=== PATIENT | female | born 1955 | race Caucasian/White ===

== ENCOUNTER 2019-08-12 18:19 | Inpatient (IN) | payer OTHER ==
[~2019-08-12] VITALS: Ht 165.1 cm; Wt 100.2 kg
[~2019-08-12 18:19] MED LIST: ACETAMINOPHEN PO; ADVIL MIGRAINE200 MG PO; AMITRIPTYLINE H75 M1 PO; BENTYL20 MG PO; COREG CR20 MG PO; FLONASE16 GM NS; MECLIZINE 25 MG25 M1 PO; PRILOSEC40 MG PO; VICODIN 5-5001 EACH PO; ZOFRAN4 MG PO
[2019-08-12 18:21] VITALS: BP 149/94
[2019-08-12 18:44] LABS: ABSOLUTE NEUTROPHILS 2.7 thou/uL (1.4-8.2); BASOPHILS 0.8 % (0.0-2.0); EOSINOPHILS 1.7 % (0.0-3.0); HEMATOCRIT 33.3 % (37.0-47.0); HEMOGLOBIN 10.9 gm/dL (12.0-15.0); MCH 26.3 pg (26.0-34.0); MCHC 32.8 g/dL (28.0-37.0); MCV 80.2 fL (80.0-100.0); MONOCYTES 9.5 % (1.0-8.0); PLATELET COUNT 267 thou/uL (150-400); RBC 4.15 mil/uL (4.20-5.00); RDW 14.7 % (10.5-14.5)
[2019-08-12 19:06] LABS: ALBUMIN 2.9 g/dL (3.4-5.0); ANION GAP 6 mmol/L (7-16); BUN 3 mg/dL (7-18); CALCIUM 9.4 mg/dL (8.5-10.1); CHLORIDE 94 mmol/L (98-107); CO2 34 mmol/L (21-32); CREATININE 0.8 mg/dL (0.6-1.0); GLUCOSE 210 mg/dL (74-106); LIPASE 15 U/L (73-393); SGOT 15 U/L (15-37); SGPT 13 U/L (30-65); SODIUM 134 mmol/L (136-145); TOTAL BILIRUBIN 0.5 mg/dL (<0.1-1.0); TOTAL PROTEIN 7.4 g/dL (6.4-8.2); TROPONIN-I <0.06 ng/mL (<0.06)
[2019-08-12 19:19] LABS: POTASSIUM 2.9 mmol/L (3.5-5.1)
[2019-08-12 21:20] VITALS: BP 178/96
--- NOTE | 2019-08-12 23:00 | NUR ---
New pt arrived unit @6270. pt is admitted with a dx of colitis. pt stated that she's had intractable n/v for the past 5days, and has not been able to keep anything down since 08/11. pt is on a clear liquid diet and tolerating it well pt is a&ox4. ambulates with standby assist. Pt had a high blood pressure when she arrived unit n was medicated per emar with improvements. pt k and mg were low and are being replaced. pt oriented to room. pt c/o abd, generalized and head pain and was medicated. pt call approp when she needs assistance. no s/s of distress. will cont to monitor
[2019-08-13 01:03] VITALS: BP 156/83
[2019-08-13] MEDS ORDERED: GLUCOPHAGE1000 MG PO (01:09)
[2019-08-13] MEDS ORDERED: LIPITOR10 MG (01:11)
[2019-08-13] MEDS ORDERED: LISINOPRIL-HCT1 EAC1 (01:13)
[2019-08-13] MEDS ORDERED: BUSPIRONE HCL10 MG (01:14)
[2019-08-13] MEDS ORDERED: LEXAPRO 10 MG T10 M2 PO (01:15)
[2019-08-13] MEDS ORDERED: NEURONTIN 400M400 M2 (01:16)
[2019-08-13] MEDS ORDERED: TRAMADOL 50 MG50 MG (01:17)
[2019-08-13 07:01] LABS: HEMATOCRIT 31.2 % (37.0-47.0); HEMOGLOBIN 10.1 gm/dL (12.0-15.0); MCH 26.2 pg (26.0-34.0); MCHC 32.4 g/dL (28.0-37.0); MCV 80.7 fL (80.0-100.0); RBC 3.86 mil/uL (4.20-5.00); RDW 14.6 % (10.5-14.5); WBC 3.9 thou/uL (4.0-11.0)
[2019-08-13 07:21] LABS: CALCIUM 8.9 mg/dL (8.5-10.1); CREATININE 0.6 mg/dL (0.6-1.0); POTASSIUM 3.6 mmol/L (3.5-5.1)
[2019-08-13 07:40] VITALS: BP 150/80
--- NOTE | 2019-08-13 14:10 | NUR ---
Chart reviewed and case discussed with the care team. Psychiatry Teacher visited with the pt at bedside. 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 She is a&ox4 and indicates that she has applied for SS disability due to neurological issues (TIA's). She does not have health insurance and was [facility] to complete a [place] medicaid application. She utlizes [facility] and they help her get her medications. Saftey net pkt provided along with goodrx coupon card. The pt is hoping she will be able to move to [place] soon to live with her only child, jermaine Zacarias. Transition of care discussed. Pt denies any dc planning needs at this time. Will remain available should needs arise.
--- NOTE | 2019-08-13 15:06 | NUR ---
Assumed Pt care @ 0700. Assessment completed, VSS, A&O x4. Pt has small bruising on leg due to bumping into furniture and PT made small drawing around bruise to check if it would go outside of drawn border, it did not. Pt went to use toilet and stated she thought she has CDIFF but RN did not note any foul odor or unusual color to urine but sent sample to lab for determination. Pt complains of mild sore throat and headache and pain around adbomen. Provided pain medication and also comfort items (ice bag and cold towel for headache). Pt's daughter called to check Pt status and was satisfied with overall report. Nuc Med called to provide instructions regarding gastric empty study that will have NPO after midnight, no water except small sips for morning meds and NO ANTACIDS, NO NARCOTICS, & NO ANTIANXIETY meds.
[2019-08-13 15:55] LABS: URINE BILIRUBIN NEGATIVE (Negative); URINE BLOOD NEGATIVE (Negative); URINE CLARITY CLEAR; URINE COLOR YELLOW; URINE GLUCOSE-RANDOM* NEGATIVE (Negative); URINE KETONES NEGATIVE (Negative); URINE LEUKOCYTES-REFLEX TRACE (Negative); URINE NITRITE-REFLEX NEGATIVE (Negative); URINE PROTEIN (DIPSTICK) NEGATIVE (Negative); URINE SPECIFIC GRAVITY <= 1.005 (1.005-1.035); URINE UROBILINOGEN 0.2 E.U./dl (0.2-1.0)
[2019-08-13 20:01] VITALS: BP 151/86
--- NOTE | 2019-08-14 03:33 | NUR ---
PT AOX4. PT REPORTS PAIN 9/10 IN HEAD AND ABDOMEN. GIVEN PRN MORPHINE IV. APPEARS EFFECTIVE PT SLEEPING WITHOUT INTERRUPTION OR OBSERVATION OF PAIN. NOTED TO HAVE DIMINISHED LUNG SOUNDS. PT HAS NO REPORT OF SHORTNESS OF BREATH. PT NPO AT 0000. PT TO HAVE GASTRIC EMPTYING PROCEDURE IN THE MORNING. ABSENT BOWEL SOUNDS. CURRENTLY NO EPISODES OF NAUSEA AND VOMITTING. PT ASSISTED WITH DENTAL HYGIENE SHE REPORTS DRY MOUTH. PT AMBULATORY WITH CANE AND STAND BY ASSIST. ENCOURAGED TO NOTIFY STAFF FOR ALL CONCERNS. CALL LIGHT WITHIN REACH, BED AT LOWEST POSITION, BED ALARMS ON.
[2019-08-14 06:03] LABS: HEMATOCRIT 30.4 % (37.0-47.0); HEMOGLOBIN 9.8 gm/dL (12.0-15.0); MCH 26.2 pg (26.0-34.0); MCHC 32.3 g/dL (28.0-37.0); MCV 80.9 fL (80.0-100.0); RBC 3.76 mil/uL (4.20-5.00); RDW 14.8 % (10.5-14.5); WBC 2.8 thou/uL (4.0-11.0)
[2019-08-14 06:16] LABS: CALCIUM 8.3 mg/dL (8.5-10.1); CREATININE 0.6 mg/dL (0.6-1.0); POTASSIUM 3.3 mmol/L (3.5-5.1)
[2019-08-14 08:13] VITALS: BP 168/76
[2019-08-14 17:05] VITALS: BP 153/88
--- NOTE | 2019-08-14 18:59 | EKG ---
[place] [address] [facility] [place] [address] ELECTROCARDIOGRAM REPORT Name: ALVIN DE LA CRUZ Room #: 464-P ADM IN M.R.#: [id number] Admission: 08/12/19 Attend Phys: Luciano Helm MD Discharge: Date of : 59 Report #: [id number] THIS REPORT FOR: //name// [facility] ED Test Date: 2019-08-12 Test Time: 19:04:14 Pat Name: ALVIN DE LA CRUZ Department: Room: 464 Gender: F Cash Processor: SARAH : 1955 Requested By: Jennifer Prado Order Number: [id number] MD: Juan Wharton Measurements Intervals [place] Rate: 91 P: 148 SC: 175 QRS: 209 QRSD: 94 T: 156 QT: 379 QTc: 467 Interpretive Statements Right and left arm electrode reversal, interpretation assumes no reversal Sinus or ectopic atrial rhythm Nonspecific T wave abnormality Compared to ECG 06/21/2010 12:28:35 Limb lead reversal is now present recommend repeat tracing Electronically Signed On 08-14-2019 18:59:18 ALLOY WEIGHER by Juan Wharton [email or web address] <ELECTRONICALLY SIGNED> By: Juan Wharton MD, FAC 08/14/19 1859 03 03 Juan Wharton MD, [facility] /EPI
--- NOTE | 2019-08-14 19:00 | EKG ---
[address] [place] [address] ELECTROCARDIOGRAM REPORT Name: DE LA CRUZALVIN Room #: 464-P ADM IN M.R.#: [id number] Admission: 08/12/19 Attend Phys: Luciano Helm MD Discharge: Date of : 59 Report #: [id number] THIS REPORT FOR: //name// [facility] ED Test Date: 2019-08-12 Test Time: 19:09:38 Pat Name: ALVIN DE LA CRUZ Department: Room: 464 Gender: F Cracking And Fanning Machine Operator: SARAH : 1955 Requested By: Luciano Helm Order Number: [id number] MD: Juan Wharton Measurements Intervals [place] Rate: 92 P: 29 IN: 180 QRS: -30 QRSD: 92 T: 8 QT: 357 QTc: 442 Interpretive Statements Sinus rhythm Left axis deviation Poor R wave progression Compared to ECG 06/21/2010 12:28:35 Limb lead reversal is no longer present Electronically Signed On 08-14-2019 18:59:41 HIGH VOLTAGE ELECTRICIAN by Juan Wharton [email or web address] <ELECTRONICALLY SIGNED> By: Juan Wharton MD, [facility] 08/14/19 3146 08 08 Juan Wharton MD, [facility] /EPI
--- NOTE | 2019-08-14 19:39 | NUR ---
Received awake on bed. On nothing per orem- pt informed and aware. Vital signs stable. On room air, pt mentioned she was recently diagnosed with sleep apnea and has not yet gone for fitting for Cpap/bipap- Dr Helm informed this morning during his rounds. A+Ox4. Pt scheduled for Gastric emptying studies thus NPO from midnight, no narcotics given from midnight. On blood sugar monitoring, taken and recorded accordingly; with sliding scale insulin prescribed. With NS at 125cc/hr, infusing well at L AC, with SL at L hand as well. Pt on standby assist, stable- able to go to the bathroom. Pt went down for gastric emptying studies via cart, stayed there for almost 4 hours. As per Emergency Dept Tech Marcia- results are negative, she went to pt's room to give her an update. Daughter Deann also given update. Pt complained that she has not have a bowel movement for more that a week already- FAUSTINA Reicnos informed, ordered Bisacodyl supp- given as prescribed, if still unable to have a bowel movement- may give colace bomb enema. Pt maintained on clear liquid diet as per RADIATION OFFICER. Colace bomb enema given- able to have a bowel movement, mostly were the instilled fluids earlier, pt still has remaining of the enema, informed night shift supervisor nurse to instill remaining since pt requested rest from administration of enema. Pt's IV both infiltrated- re-sited by IV nurse at FA. Dr Helm updated re: bowel movements and orders made. Complained of pain, due PRN pain meds given as prescribed. Assisted in ADLs. Pre dinner sliding scale omitted- pt not having too much to eat, high risk for hypoglycemia. To continue monitoring patient.
[2019-08-14 19:46] VITALS: BP 145/51
[2019-08-15 07:24] VITALS: BP 156/73
--- NOTE | 2019-08-15 07:29 | NUR ---
ASSUMED CARE OF PT AT 1900HRS. PT IS AOX4 AND LETS NEEDS BE KNOWN. FALL PRECAUTION IN PLACE. PT COMPLAINED OF NAUSEA AND PAIN AND WAS TREATED WITH PRN MEDS. ENEMA WAS EFFECTIVE PT HAD A LARGE BM THIS SHIFT. PT WAS ABLE TO SLEEP PART OF THE SHIFT. VSS AND NO S/S OF ACUTE DISTRESS. PT IS PROGRESSING TOWARDS DC GOALS.
[2019-08-15] MEDS ORDERED: FLAGYL500 M1 PO (15:35)
[2019-08-15] MEDS ORDERED: CIPRO500 M1 PO (15:35)
[2019-08-15 17:36] VITALS: BP 156/73
--- NOTE | 2019-08-15 18:34 | NUR ---
DC ORDERS RECEIVED. DC INSTRUCTIONS, F/U APPOINTMENT AND SCRIPTS REVIEWED WITH PT. IV REMOVED FROM R FA. PT WAITING FOR HER RIDE AT THIS TIME.
== END 2019-08-15 19:22 | disposition home or self-care (01) | DRG 395 ==
LOC: ER 18:19 → EROBS 20:32 → 4W 20:32 → ENTRNSPT 08-15 18:53 → 4W 08-15 19:22
PROVIDERS: Nurse Practitioner Family; Physician Assistant; ADMIT Hospitalist
DX: K55.9 Vascular disorder of intestine, unspecified (principal); I10 Essential (primary) hypertension; E78.5 Hyperlipidemia, unspecified; E11.42 Type 2 diabetes mellitus with diabetic polyneuropathy; Z96.653 Presence of artificial knee joint, bilateral; E78.00 Pure hypercholesterolemia, unspecified; F41.9 Anxiety disorder, unspecified; F32.9 Major depressive disorder, single episode, unspecified; E87.6 Hypokalemia; K58.1 Irritable bowel syndrome with constipation; G47.33 Obstructive sleep apnea (adult) (pediatric); K57.30 Diverticulosis of large intestine without perforation or abscess without bleeding; Z90.49 Acquired absence of other specified parts of digestive tract; Z88.8 Allergy status to other drugs, medicaments and biological substances; Z79.899 Other long term (current) drug therapy; Z90.710 Acquired absence of both cervix and uterus
CPT/HCPCS: 10040; 10045

== ENCOUNTER 2020-04-24 12:40 | Emergency (ER) | payer OTHER ==
[~2020-04-24] VITALS: Ht 165.1 cm; Wt 99.8 kg
[~2020-04-24 12:40] MED LIST changes: +ASA81BEC PO; +BUSPIRONE HCL10 MG; +CIPRO500 M1 PO; +FLAGYL500 M1 PO; +FLEXERIL PO; +GLUCOPHAGE1000 MG PO; +KEFLEX500 M1 PO; +LEXAPRO 10 MG T10 M2 PO; +LIPITOR10 MG; +LISINOPRIL-HCT1 EAC1; +NEURONTIN 400M400 M2; +ONDANSETRON ODT4 MG PO; +PRILOSEC OTC20 MG PO; +TRAMADOL 50 MG50 MG
[2020-04-24 13:25] LABS: URINE BILIRUBIN NEGATIVE (Negative); URINE BLOOD NEGATIVE (Negative); URINE CLARITY CLEAR; URINE COLOR YELLOW; URINE GLUCOSE-RANDOM* NEGATIVE (Negative); URINE KETONES NEGATIVE (Negative); URINE LEUKOCYTES-REFLEX NEGATIVE (Negative); URINE NITRITE-REFLEX NEGATIVE (Negative); URINE PROTEIN (DIPSTICK) NEGATIVE (Negative); URINE SPECIFIC GRAVITY 1.015 (1.005-1.035); URINE UROBILINOGEN 0.2 E.U./dl (0.2-1.0)
[2020-04-24 13:54] LABS: ABSOLUTE NEUTROPHILS 2.8 thou/uL (1.4-8.2); BASOPHILS 0.5 % (0.0-2.0); EOSINOPHILS 1.8 % (0.0-3.0); HEMATOCRIT 39.1 % (37.0-47.0); HEMOGLOBIN 12.7 gm/dL (12.0-15.0); LYMPHOCYTES 28.4 % (24.0-44.0); MCH 26.1 pg (26.0-34.0); MCHC 32.5 g/dL (28.0-37.0); MCV 80.1 fL (80.0-100.0); MONOCYTES 7.6 % (1.0-8.0); PLATELET COUNT 211 thou/uL (150-400); POLYS 61.7 % (36.0-66.0); RBC 4.88 mil/uL (4.20-5.00); RDW 16.6 % (10.5-14.5); WBC 4.6 thou/uL (4.0-11.0)
[2020-04-24 14:02] LABS: ANION GAP 5 mmol/L (7-16); BUN 4 mg/dL (7-18); CALCIUM 9.5 mg/dL (8.5-10.1); CHLORIDE 97 mmol/L (98-107); CO2 32 mmol/L (21-32); CREATININE 0.9 mg/dL (0.6-1.0); GLUCOSE 125 mg/dL (74-106); POTASSIUM 3.3 mmol/L (3.5-5.1); SODIUM 134 mmol/L (136-145)
[2020-04-24 14:12] LABS: ALBUMIN 3.6 g/dL (3.4-5.0); DIRECT BILIRUBIN 0.1 mg/dL (<0.1-0.2); SGOT 35 U/L (15-37); SGPT 30 U/L (30-65); TOTAL BILIRUBIN 0.5 mg/dL (0.2-1.0); TOTAL PROTEIN 7.9 g/dL (6.4-8.2); TROPONIN-I <0.06 ng/mL (<0.06)
[2020-04-24] MEDS ORDERED: BENTYL 20 MG TA20 M1 PO (16:06)
[2020-04-24 16:14] VITALS: BP 147/96
== END 2020-04-24 16:15 | disposition home or self-care (01) ==
LOC: ER 12:40
PROVIDERS: Emergency Medicine
DX: R11.2 Nausea with vomiting, unspecified (principal); R41.0 Disorientation, unspecified; L98.499 Non-pressure chronic ulcer of skin of other sites with unspecified severity; E86.0 Dehydration; R51 Headache; R50.9 Fever, unspecified; R61 Generalized hyperhidrosis; I10 Essential (primary) hypertension; E11.40 Type 2 diabetes mellitus with diabetic neuropathy, unspecified; E78.00 Pure hypercholesterolemia, unspecified; F41.9 Anxiety disorder, unspecified; F32.9 Major depressive disorder, single episode, unspecified; Z90.49 Acquired absence of other specified parts of digestive tract; Z90.711 Acquired absence of uterus with remaining cervical stump; Z79.899 Other long term (current) drug therapy; Z79.82 Long term (current) use of aspirin

== ENCOUNTER 2020-04-28 11:45 | Inpatient (IN) | payer OTHER ==
[~2020-04-28] VITALS: Ht 165.1 cm; Wt 96.2 kg
[~2020-04-28 11:45] MED LIST changes: +BENTYL 20 MG TA20 M1 PO
[2020-04-28 11:47] VITALS: BP 171/113
[2020-04-28 12:34] LABS: ABSOLUTE NEUTROPHILS 2.6 thou/uL (1.4-8.2); BASOPHILS 0.5 % (0.0-2.0); HEMATOCRIT 35.2 % (37.0-47.0); HEMOGLOBIN 11.3 gm/dL (12.0-15.0); LYMPHOCYTES 29.6 % (24.0-44.0); MCH 25.8 pg (26.0-34.0); MCHC 32.2 g/dL (28.0-37.0); MONOCYTES 8.2 % (1.0-8.0); PLATELET COUNT 209 thou/uL (150-400); POLYS 59.7 % (36.0-66.0); RDW 16.9 % (10.5-14.5); WBC 4.4 thou/uL (4.0-11.0)
[2020-04-28 12:52] LABS: ALBUMIN 3.2 g/dL (3.4-5.0); CREATININE 0.8 mg/dL (0.6-1.0); TOTAL BILIRUBIN 0.6 mg/dL (0.2-1.0); TOTAL PROTEIN 7.2 g/dL (6.4-8.2)
[2020-04-28 12:57] LABS: POTASSIUM 2.8 mmol/L (3.5-5.1)
[2020-04-28] MEDS ORDERED: POTASSIUM20 PO (14:31)
[2020-04-28] MEDS ORDERED: PREDNISONE 20 M20 MG PO (14:31)
[2020-04-28] MEDS ORDERED: PHENERGAN 25 MG25 M1 PO (14:31)
[2020-04-28] MEDS ORDERED: BACTRIM DS TAB1 EACH PO (14:31)
[2020-04-28] MEDS ORDERED: SENNA PLUS TAB1 EACH PO (15:29)
[2020-04-28 16:09] VITALS: BP 168/96
[2020-04-28 16:24] VITALS: BP 171/105
--- NOTE | 2020-04-28 16:32 | NUR ---
ATTEMPTEDTO CALL REPORT, [facility]
[2020-04-28 19:07] VITALS: BP 162/104
--- NOTE | 2020-04-28 20:22 | NUR ---
PATIENT ADMITTED FROM ER WITH INTRACTABLE VOMITING, FAILED OP, AND HYPOKALEMIA. PATIENT HAS REDDENED AREAS OVER BODY, C/O PAIN GENERALIZED OVER BODY. PATIENT C/O PAIN GENERALIZED OVER BODY /. PATIENT ALERT AND ORIENTED X4. LARGE BRUISES TO RIGHT AND LEFT ARM DUE TO STARTING IV'S. PATIENT HAS LEFT FOREARM IV WITH 1/2 NS AT 75CC/HR AND STARTED ZOSYN LOADING DOSE AT 200CC/HR. ADMISSION COMPLETED, EXCEPT TELE STRIP. WILL REPORT TO NGUYEN/RN.
[2020-04-28 23:49] VITALS: BP 161/92
[2020-04-29 00:24] LABS: URINE BILIRUBIN NEGATIVE (Negative); URINE BLOOD NEGATIVE (Negative); URINE CLARITY CLEAR; URINE COLOR YELLOW; URINE GLUCOSE-RANDOM* NEGATIVE (Negative); URINE KETONES NEGATIVE (Negative); URINE LEUKOCYTES-REFLEX TRACE (Negative); URINE NITRITE-REFLEX NEGATIVE (Negative); URINE PROTEIN (DIPSTICK) NEGATIVE (Negative); URINE UROBILINOGEN 0.2 E.U./dl (0.2-1.0)
[2020-04-29 03:10] VITALS: BP 169/81
[2020-04-29 05:59] LABS: HEMATOCRIT 35.2 % (37.0-47.0); HEMOGLOBIN 11.3 gm/dL (12.0-15.0); MCH 25.9 pg (26.0-34.0); MCHC 32.1 g/dL (28.0-37.0); MCV 80.8 fL (80.0-100.0); RBC 4.36 mil/uL (4.20-5.00); RDW 17.7 % (10.5-14.5); WBC 4.6 thou/uL (4.0-11.0)
[2020-04-29 06:10] VITALS: BP 164/91
[2020-04-29 06:43] LABS: CALCIUM 8.1 mg/dL (8.5-10.1); CREATININE 0.8 mg/dL (0.6-1.0); POTASSIUM 3.5 mmol/L (3.5-5.1)
--- NOTE | 2020-04-29 06:45 | NUR ---
Assumed pt care at 1900.A/OX4. C/o generalized aches all over medicated per EMAR with Morphine with some relief reported. Bp elevated on and off medicated with Hydralazine with some relief noted. Pt had episodes of nausea with clear emesis x2 Zofran given. C/o N/V, not time for Zofran Anca CHICKEN CLEANER notified order given for Compazine and administered;an hr after pt called designer writer c/o feeling her nerves acting up reported having an ADR to it sometimes back though not on her ADR history. Mikhail CHICKEN CLEANER notified,stated give it time as Pt on IV meds it'll wear off. Pt's updated on practioners info. Manager Operating talked with pt's dtr and updated her on pt. Up with SBA/IV pole. Continent of B&B. Pt picked on ulcers on RLE causing some bleeding. Fall precautions in place,calls approp.
[2020-04-29 07:38] VITALS: BP 151/80
--- NOTE | 2020-04-29 07:39 | EKG ---
[facility] [place] [address] ELECTROCARDIOGRAM REPORT Name: LEYDI DE LA CRUZYCKayley LUX Room #: 450-P ADM IN M.R.#: [id number] Admission: 04/28/20 Attend Phys: Heather Fong MD Discharge: Date of : 59 Report #: [id number] THIS REPORT FOR: cc: Cora Barros Christine L. DO Lundgren,Juan Perdomo MD [facility] THIS REPORT FOR: //name// [facility] ED Test Date: 2020-04-28 Test Time: 14:11:01 Pat Name: ALVIN DE LA CRUZ Department: Room: [facility] Gender: F Health Care Marketing Specialist: SHA : 1955 Requested By: Jennifer Prado Order Number: [id number] MD: Juan Wharton Measurements Intervals [place] Rate: 92 P: DE: QRS: -34 QRSD: 92 T: 16 QT: 393 QTc: 487 Interpretive Statements Sinus rhythm Poor R wave progression Borderline prolonged QT interval Compared to ECG 04/21/2020 17:42:46 QT interval has lengthened Electronically Signed On 04-29-2020 7:39:42 CDT by Juan Wharton [email or web address] <ELECTRONICALLY SIGNED> By: Juan Wharton MD, [facility] 04/29/20 0739 1411 1411 Juan Wharton MD, [facility] /EPI
--- NOTE | 2020-04-29 12:18 | NUR ---
PT ADMITTED RELATED TO INTRACTABLE VOMINTING, FAILED OP. HYPOKALEMIA. CM REVIEWED CHART AND SPOKE WITH CARE TEAM. CM CALLED AND SPOKE WITH PT AT BEDSIDE THIS DAY. PT APPEARED TO BE A&O X4. CM ROLE INTRODUCED. PT INDICATED SHE LIVES ALONE IN A HOUSE WITH 3 STEPS TO ENTER AND NONE INSIDE. PT INDICATED THAT SHE HAS A CANE FOR USE AT HOME. PT INDICATED NO HH OR OP THERAPY HX. PT'S DTR IS HER CONTACT. PT INDICATED SHE IS PATIENT PAY AND IS INERESTED IN APPLYING FOR MEDICAID. [employer]SIST TO ASSESS PT. PT'S PCP IS DR. MACY ARELLANO. PT INDICATED SHE PLANS TO RETURN HOME ONCE MEDICALY STABLE. CM TO FOLLOW INDICATED WITH DC PLANNING.
[2020-04-29 14:30] VITALS: BP 180/104
--- NOTE | 2020-04-29 21:02 | NUR ---
ASSUMED CARE OF PATIENT AT 0715, PATIENT ALERT AND ORIENTED X 4. PATIEN DENIES PAIN THIS AM. PATIENT NPO FOR EGD THIS AM. PATIENT WENT DOWN ABOUT 0830, REPORT FROM DURGA/RN, 2 BIOPSIES DONE AND DILATION OF ESOPHAGUS. PATIENT BP ELEVATED ALL SHIFT. THIS RN NOTIFIED DR TRIPP, HOME MEDS STARTED. PATIENT ANXIETY LEVEL HIGH MOST OF THE SHIFT, NOTIFIED DR TRIPP X 2 FOR LORAZEPAM 1 MG PO ORDERED Q8HRS, GIVEN WITH SOME RELIEF. PATIENT GIVEN ZOFRAN 4MG IV, SMALL AMT OF EMESIS. PATIENT ON CLEAR LIQUIDS, ONLY HAD 10% FOR LUNCH AND 10% FOR DINNER. PATIENT C/O HEADACHE MOST OF THE SHIFT, MORPHINE 2 MG IV GIVEN, PARTIAL RELIEF. NGUYEN/RN NIGHTSHIFT NURSE WILL GET ORDER FOR TYLENOL. WILL CONTINUE TO MONITOR.
[2020-04-29 21:18] VITALS: BP 165/107
[2020-04-30 00:49] VITALS: BP 108/63
[2020-04-30 04:09] VITALS: BP 151/79
--- NOTE | 2020-04-30 04:41 | NUR ---
Assumed pt care at 1900. A/OX4, c/o headache at beginning of shift, order for Tylenol obtained and administered and effective. BP been stable this shift. No c/o N/V so far. IVF infusing w/o problems via LAC. Fall precautions in place,calls approp for help. SR on the monitor. Will continue to monitor pt.
[2020-04-30 06:31] LABS: HEMATOCRIT 35.4 % (37.0-47.0); HEMOGLOBIN 11.3 gm/dL (12.0-15.0); MCH 25.7 pg (26.0-34.0); MCV 80.2 fL (80.0-100.0); RBC 4.41 mil/uL (4.20-5.00); RDW 17.4 % (10.5-14.5); WBC 3.8 thou/uL (4.0-11.0)
[2020-04-30 06:38] LABS: CALCIUM 8.8 mg/dL (8.5-10.1); CREATININE 0.6 mg/dL (0.6-1.0)
[2020-04-30 06:51] LABS: POTASSIUM 2.9 mmol/L (3.5-5.1)
[2020-04-30 07:18] VITALS: BP 146/87
--- NOTE | 2020-04-30 14:40 | NUR ---
PT CONTINUES ON IV ZOSYN WE ARE WAITING ON DERMATOLOGY CONSULT. CM TO FOLLOW INDICATED WITH DC PLANNING.
[2020-04-30 15:38] VITALS: BP 128/90
--- NOTE | 2020-04-30 16:07 | PATH ---
[facility] [place] [address] PATHOLOGY RPT PROCEDURE Name: SHANIKA DE LA CRUZ Room #: 450-P ADM IN M.R.#: [id number] Admission: 04/28/20 Date of : 59 Discharge: Report #: [id number] Path Case #: [id number] [facility] Accession Number: [id number] . 01 Material submitted: . PART A: duodenum - BX OF DUODENUM PART B: stomach - BX OF ANTRUM . 01 Clinical history: . A. Rule out celiac B. Rule H. pylori . 02 Diagnosis: A. Small bowel mucosa, duodenum, rule out celiac, endoscopic biopsy: - Fragments of small bowel mucosa showing no diagnostic abnormality; negative for villous blunting or increase in intraepithelial lymphocytes. - One fragment showing gastric-type mucosa with mild chronic active gastritis; negative for intestinal metaplasia or atrophy. . B. Gastric mucosa, antrum, endoscopic biopsy: - Mild active gastritis with features of reactive gastropathy. - Negative for intestinal metaplasia or atrophy. - Negative for Helicobacter pylori (properly controlled immunohistochemical stain performed). (IUV:pit 04/30/2020) QTP 04/30/2020 1559 Local . 02 Comment: The one fragment of gastric mucosa identified within the "duodenum" biopsy tissue may be suggestive of gastric heterotopia or a fragment of gastric biopsy obtained at the time of the procedure (antrum). Clinical correlation is suggested. (IUV:pit 04/30/2020) . 02 Electronically signed: . Rosie Marquez MD, Pathologist NPI- [id number] . 01 Gross description: . A. The specimen is received in formalin, labeled "Shanika De La Cruz BX of duodenum" and consists of multiple fragments of pink-johns tissue measuring 0.8 x 0.7 x 0.2 cm in aggregate which are entirely submitted in A1. . B. The specimen is received in formalin, labeled "Shanika De La Cruz BX of antrum" and consists of 2 fragments of pink-johns tissue measuring 0.2 x 0.2 cm and 0.3 x 0.2 cm which are entirely submitted in B1. (SDY; 04/29/2020) [facility] [address] [place] [address] PATHOLOGY RPT PROCEDURE Name: SHANIKA DE LA CRUZ Room #: 450-P ADM IN M.R.#: [id number] Admission: 04/28/20 Date of : 59 Discharge: Report #: [id number] Path Case #: [id number] SYU/SYU 04/29/2020 1819 Local . 02 Pathologist provided ICD-10: K29.50, K29.60 . 02 CPT . 695040, 098042, G18806 Specimen Comment: A courtesy copy of this report has been sent to [phone], [phone] Specimen Comment: [phone], Specimen Comment: Report sent to ,DR EVERETT / DR ARELLANO Performed at: [address] [facility], [place] [id number] MD Liam Cerda MD Phone: [phone] Performed at: [address] [id number] MD Rosie Marquez MD Phone: [phone]
--- NOTE | 2020-04-30 18:53 | NUR ---
ASSUMED CARE OF PATIENT AT 0715, PATIENT ALERT AND ORIENTED X 4. UP WITH MIN. ASSIST WITH GB. PATIENT DENIES PAIN THIS SHIFT AND NAUSEA. POTASSIUM THIS AM 2.9, DR TRIPP NOTIFIED BY [facility] NURSE/[facility], FOLLOW POTASSIUM PROTOCOL. DERMA. CONSULT CALLED TO DR BLEVINS, SPOKE WITH BASILIO, DR BLEVINS UNABLE TO SEE THE PATIENT, WILL SEE THE PATIENT AFTER DISCHARGE FROM HOSPITAL. PATIENT CONTINUES WITH 1/2 NS AT 75CC/HR, AND ZOSYN IVPB. PATIENT RECEIVED POTASSIUM IVPB X 1 THIS SHIFT AND WILL START SECOND POTASSIUM AFTER ZOSYN COMPLETED. PATIENT FEELS BETTER TODAY, STARTED CARB CONTROL DIET, TOLERATED WELL. UPDATE GIVEN TO STEVAN/DAUGHTER. PATIENT MAY DISCHARGE TOMORROW IF STABLE. WILL CONTINUE TO MONITOR.
[2020-04-30 20:00] VITALS: BP 141/82
[2020-05-01 03:06] VITALS: BP 138/82
--- NOTE | 2020-05-01 04:21 | NUR ---
Assumed pt care at 1900. A/OX4,VSS. Denied pain or N/V on assessment. Pt is up with SBA to BR,reports having a BM. C/o insomnia at HS Ambien given and effective. Pt's IV leaking, reinserted on LFA with 3 attempts IVF/ABTs infusing w/o problems. Pt declined getting a shower at HS stating she'll get it prior to dc today. NSR on telemetry. Fall precautions in place,calls approp for help.
[2020-05-01 06:22] LABS: HEMATOCRIT 34.1 % (37.0-47.0); MCHC 32.1 g/dL (28.0-37.0); MCV 81.1 fL (80.0-100.0); RBC 4.21 mil/uL (4.20-5.00); RDW 18.1 % (10.5-14.5); WBC 3.9 thou/uL (4.0-11.0)
[2020-05-01 06:39] LABS: CALCIUM 8.5 mg/dL (8.5-10.1); CREATININE 0.7 mg/dL (0.6-1.0); POTASSIUM 3.4 mmol/L (3.5-5.1)
[2020-05-01 07:19] VITALS: BP 180/92
--- NOTE | 2020-05-01 10:04 | NUR ---
CARE TEAM INDICATED PT IS MEDICALLY STABLE TO DC HOME THIS DAY. PT IS TO BE SWITCHED TO ORAL ABX. CM MET WITH PT AT BEDSIDE THIS DAY. SHE INDICATED SHE WOULD BE ABLE TO PAY TO FILL ANY PERSCRIPTIONS UPON DC. PT HAS OP DERMATOLOGY APPOINTMENT TODAY AT 1300 AND INDICATED SHE HOPES TO DC BEFORE THAT TO BE DIAMANTE O GET TO HER APPOINTMENT. PHYSICIAN IS AWARE. PT IS TO DC HOME TO SELF CARE. NO OTHER CM INTERVETNION INDICATED. CASE CLOSED.
[2020-05-01] MEDS ORDERED: LISINOPRIL-HCT1 EAC1 PO (10:08)
[2020-05-01] MEDS ORDERED: AUGMENTIN 875-1 EACH PO (10:09)
[2020-05-01] MEDS ORDERED: ZOFRAN4 MG PO (10:11)
[2020-05-01 10:39] VITALS: BP 180/92
--- NOTE | 2020-05-01 12:07 | NUR ---
Assumed pt care at 7am.Pt in bed resting without c/o.Assessment completed.vss. Pt was anxious about dc home today at 1330. Pt tolerated meds and diet.Dr Helm here,dc order noted.Pt took shower and dress up for dc but wanted to eat lunch prior to dc home.Ivf dc with saline lock and telemetry.Dc summary compile and reviewed with pt.At 1320,pt will left per wc to Dr Fiore office for appointment and then dc home form there.Will continue to monitor.
== END 2020-05-01 14:12 | disposition home or self-care (01) | DRG 392 ==
LOC: ER 11:45 → EROBS 15:44 → 4W 17:41
PROVIDERS: Hospitalist; Physician Assistant; ADMIT Internal Medicine; ATTEND Internal Medicine
PROC: 0DB98ZX Excision of Duodenum, Via Natural or Artificial Opening Endoscopic, Diagnostic (ICD-10-PCS; principal; 2020-04-28)
PROC: 0DB78ZX Excision of Stomach, Pylorus, Via Natural or Artificial Opening Endoscopic, Diagnostic (ICD-10-PCS; principal; 2020-04-28)
DX: K29.70 Gastritis, unspecified, without bleeding (principal); K22.2 Esophageal obstruction; K20.9 Esophagitis, unspecified; I10 Essential (primary) hypertension; K44.9 Diaphragmatic hernia without obstruction or gangrene; K58.1 Irritable bowel syndrome with constipation; E78.00 Pure hypercholesterolemia, unspecified; F41.9 Anxiety disorder, unspecified; F32.9 Major depressive disorder, single episode, unspecified; G62.9 Polyneuropathy, unspecified; E87.6 Hypokalemia; E83.42 Hypomagnesemia; R21 Rash and other nonspecific skin eruption; E11.42 Type 2 diabetes mellitus with diabetic polyneuropathy; K21.9 Gastro-esophageal reflux disease without esophagitis; L98.9 Disorder of the skin and subcutaneous tissue, unspecified; Z79.82 Long term (current) use of aspirin; Z03.818 Encounter for observation for suspected exposure to other biological agents ruled out; Z90.49 Acquired absence of other specified parts of digestive tract; Z90.89 Acquired absence of other organs; Z90.710 Acquired absence of both cervix and uterus; Z79.899 Other long term (current) drug therapy; Z79.84 Long term (current) use of oral hypoglycemic drugs
CPT/HCPCS: 10045; 62110; 62900; 70005

== ENCOUNTER 2020-08-07 15:17 | Emergency (ER) | payer OTHER ==
[~2020-08-07] VITALS: Ht 165.1 cm; Wt 96.2 kg
[~2020-08-07 15:17] MED LIST changes: +AUGMENTIN 875-1 EACH PO; +BACTRIM DS TAB1 EACH PO; +LISINOPRIL-HCT1 EAC1 PO; +PHENERGAN 25 MG25 M1 PO; +POTASSIUM20 PO; +PREDNISONE 20 M20 MG PO; +SENNA PLUS TAB1 EACH PO
[2020-08-07 15:37] LABS: URINE BILIRUBIN NEGATIVE (Negative); URINE BLOOD 3+ (Negative); URINE CLARITY CLOUDY; URINE COLOR YELLOW; URINE GLUCOSE-RANDOM* NEGATIVE (Negative); URINE KETONES NEGATIVE (Negative); URINE PROTEIN (DIPSTICK) 2+ (Negative); URINE SPECIFIC GRAVITY 1.025 (1.005-1.035); URINE UROBILINOGEN 0.2 E.U./dl (0.2-1.0)
[2020-08-07 15:38] LABS: URINE LEUKOCYTES-REFLEX 2+ (Negative); URINE NITRITE-REFLEX POSITIVE (Negative)
[2020-08-07 15:50] LABS: SQUAMOUS 0-3 Few /LPF (0-3); WBC CLUMPS Moderate (None Seen)
[2020-08-07 15:51] LABS: CRYSTALS None Seen /LPF (None Seen); MUCUS 0-3 Light strn/LPF (None Seen); RENAL EPITHELIAL CELLS 0-3 Few /LPF (None Seen); URINE WBC-REFLEX >25 Many /HPF (0-5)
[2020-08-07 15:52] LABS: CASTS None Seen /LPF (None Seen); TRANSITIONAL EPITHEL CELL 0-3 Few /LPF (None Seen)
[2020-08-07 16:01] LABS: ABSOLUTE NEUTROPHILS 4.9 thou/uL (1.4-8.2); BASOPHILS 0.4 % (0.0-2.0); EOSINOPHILS 2.5 % (0.0-3.0); HEMATOCRIT 36.7 % (37.0-47.0); HEMOGLOBIN 11.8 gm/dL (12.0-15.0); LYMPHOCYTES 17.3 % (24.0-44.0); MCH 25.8 pg (26.0-34.0); MCV 80.5 fL (80.0-100.0); MONOCYTES 6.7 % (1.0-8.0); POLYS 73.1 % (36.0-66.0); RBC 4.56 mil/uL (4.20-5.00); WBC 6.7 thou/uL (4.0-11.0)
[2020-08-07 16:13] LABS: CALCIUM 9.4 mg/dL (8.5-10.1); CREATININE 0.8 mg/dL (0.6-1.0); POTASSIUM 3.6 mmol/L (3.5-5.1)
[2020-08-07 16:20] LABS: ALBUMIN 3.6 g/dL (3.4-5.0); TOTAL BILIRUBIN 0.7 mg/dL (0.2-1.0)
[2020-08-07 16:49] LABS: PLATELET COUNT 238 thou/uL (150-400); PLATELET ESTIMATE NORMAL
[2020-08-07] MEDS ORDERED: KEFLEX500 M1 PO (19:25)
[2020-08-07 20:09] VITALS: BP 147/94
== END 2020-08-07 20:09 | disposition home or self-care (01) ==
LOC: ER 15:17
PROVIDERS: Physician Assistant
DX: S42.214A Unspecified nondisplaced fracture of surgical neck of right humerus, initial encounter for closed fracture (principal); N39.0 Urinary tract infection, site not specified; L29.2 Pruritus vulvae; I10 Essential (primary) hypertension; E78.00 Pure hypercholesterolemia, unspecified; E11.42 Type 2 diabetes mellitus with diabetic polyneuropathy; Z96.653 Presence of artificial knee joint, bilateral; F41.9 Anxiety disorder, unspecified; F32.9 Major depressive disorder, single episode, unspecified; Z90.49 Acquired absence of other specified parts of digestive tract; Z90.711 Acquired absence of uterus with remaining cervical stump; Z79.899 Other long term (current) drug therapy; Z79.82 Long term (current) use of aspirin; Z88.8 Allergy status to other drugs, medicaments and biological substances; W19.XXXA Unspecified fall, initial encounter; Y93.89 Activity, other specified; Y92.89 Other specified places as the place of occurrence of the external cause; Y99.8 Other external cause status

== ENCOUNTER 2020-08-31 12:55 | Inpatient (IN) | payer OTHER ==
[~2020-08-31] VITALS: Ht 165.1 cm; Wt 98.2 kg
[2020-08-31 12:57] VITALS: BP 148/94
[2020-08-31 16:31] LABS: ABSOLUTE NEUTROPHILS 5.9 thou/uL (1.4-8.2); BASOPHILS 0.5 % (0.0-2.0); EOSINOPHILS 1.6 % (0.0-3.0); HEMATOCRIT 33.3 % (37.0-47.0); HEMOGLOBIN 10.7 gm/dL (12.0-15.0); LYMPHOCYTES 10.8 % (24.0-44.0); MCH 25.6 pg (26.0-34.0); MONOCYTES 6.2 % (1.0-8.0); PLATELET COUNT 166 thou/uL (150-400); POLYS 80.9 % (36.0-66.0); RBC 4.16 mil/uL (4.20-5.00); RDW 17.5 % (10.5-14.5); WBC 7.3 thou/uL (4.0-11.0)
[2020-08-31 16:39] LABS: CALCIUM 9.2 mg/dL (8.5-10.1); CREATININE 0.7 mg/dL (0.6-1.0); POTASSIUM 3.3 mmol/L (3.5-5.1)
[2020-08-31 18:50] VITALS: BP 130/96
[2020-08-31 19:21] VITALS: BP 94/56
[2020-08-31 19:45] VITALS: BP 131/93
[2020-08-31] MEDS ORDERED: ZOFRAN4 MG PO (22:27)
[2020-09-01 02:52] VITALS: BP 130/81
--- NOTE | 2020-09-01 04:50 | NUR ---
PT ARRIVED TO UNIT APPROX AT 1930. PT ORIENTED TO ROOM AND UNIT, ADMISSION PACKET PROVIDED. PT AOX4. PT REPORTS PAIN IN LEFT SHOULDER AND LEFT UPPER BACK AROUND RIBS. PT RECEIVING PRN PO NORCO Q4HR. PT TOLERATING PO INTAKE OF FLUIDS, NPO AT MIDNIGHT. PT RESTING IN BED THROUGHOUT SHIFT, FREQUENT REPOSITIONING ENCOURAGED, PT NOTED TO SHIFT INDEPENDENTLY WHILE IN BED, ACCEPTING OF REPOSITIONING ASSISTANCE WHEN REQUESTED. PT VOIDING PER BEDPAN. PT REPORTS INTERMITTENT NUMBNESS TO LEFT HAND. CAPILLARY REFILL INTACT, LESS THAN 3SEC IN ALL EXTREMITIES. PT NOTED TO HAVE NONPITTING EDEMA TO BLE. SKIN NOTED TO HAVE SCABS THROUGHOUT, PT REPORTS CHRONIC ISSUE. MEDICATIONS RECONCILED, PT EXPRESSING CONCERN WITH TAKING HS MEDICATIONS. ONCALL SUBMARINE OPERATOR NOTIFIED, EMAR UPDATED. PER ONCALL SUBMARINE OPERATOR, OKAY TO GIVE AMITRIPTYLLINE THIS SHIFT. PT GIVEN AMITRIPTYLLINE AT 0013 WITH SIP OF WATER, PT REMAINED NPO FOR REMAINDER OF SHIFT. PT ENCOURAGED TO NOTIFY STAFF FOR ALL NEEDS, CALL LIGHT WITHIN REACH, BED ALARM ON, BED IN LOWEST POSITION, FREQUENT MONITORING WILL CONTINUE.
[2020-09-01 08:12] VITALS: BP 94/66
--- NOTE | 2020-09-01 08:51 | NUR ---
RD consult for poor intake. Admit following fall with left humerous fracture. Hx DM diet controlled. BG controlled. Wt shows favorable loss 9 lb over 1 yr, mostly stable past 4 months. Diet newly advanced, needs carb control added. Low nutrition risk
--- NOTE | 2020-09-01 11:41 | NUR ---
ASSUMED CARE AT 0700. PT IS A&O X4. PT IS ON BEDPAN AND COMPLAINING OF PAIN OF LEFT SHOULDER. PT IS CURRENTLY ON NPO AND I SPOKED WITH DR. MAR AND HE WAS OKAY FOR ME GIVING PO HYDOCODONE WITH A SIP OF WATER. PT PAIN HAS DECREASED A LITTLE AND WAS GIVEN ICE ON LEFT SHOULDER. CONTACTED DR. HUERTA TO SEE IF SHE WOULD HAVE SURGERY TODAY SO WE CAN KNOW IF SHE WILL BE NPO OR NOT. WAITING ON RESPONSE. PT DENIES NAUSEA, VOMITTING, DIARRHEA. PT BLOOD PRESSURE IS 94/66. PT DENIES ANY NUMBNESS OR TINGLING ON SHOULDER.
--- NOTE | 2020-09-01 14:13 | NUR ---
ASSESSMENT: CM REVIEWED CHART AND SPOKE WITH PT. PT IS ALERT AND ORIENTED X4. PT WAS ADMITTED DUE TO A FALL AND HUMERUS FX. ORTHO HAS BEEN CONSULTED AND IS TO SEE PT. PT REPORTS THAT SHE LIVES IN A HOUSE ALONE. PT REPORTS ABOUT 4 STEPS WITH NO HANDRAILS TO ENTER. PT REPORTS NO STEPS TO USE ONCE INSIDE. PT REPORTS SHE DOES NOT CURRENTLY HAVE ANY INSURANCE AND IS WANTING TO SEE IF SHE WILL QUALIFY FOR MEDICAID. MED-ASSIST IS TO SEE PATIENT. PT REPORTS THAT SHE GETS 1700/MONTH FOR A INTERMEDIATE CHECK SO IS UNSURE SHE WILL QUALIFY. PT REPORTS THAT SHE HAS A CANE AND WALKER AT HOME IF NEEDED BUT REPORTS NORMALLY SHE DOES NOT USE THEM. PT REPORTS SHE HAD BEEN SEEING DR. MALIK ARELLANO HER PCP OUTPATIENT. PT REPORTS HX OF HH ABOUT 10 YEARS AGO SHE STATES BUT HAS NOT HAD IT SINCE AND NO HX OF SNF. CURRENTLY SHOWING PT PAY. CM WILL CONTINUE TO FOLLOW TO ASSIST NEEDED.
[2020-09-01 16:50] VITALS: BP 137/66
[2020-09-01 18:01] VITALS: BP 137/66
[2020-09-01 19:31] VITALS: BP 102/74
--- NOTE | 2020-09-01 22:58 | NUR ---
Care assumed of patient at 1915: Patient resting in bed at start of shift. Alert and oriented x4 with occasional forgetfulness/confusion observed. Patient confusing day time vs night time, correct day of the week. Continent of bladder. Used bedpan with mod assist x1. Bruising and non-pitting edema to left shoulder, sling in place, ice pack in place. O2 2L/min per NC continuously. SOB with exertion. Reported elevated pain and requested PRN Fentanyl. Sleeping on follow up. Took HS medication without difficulty. Education completed regarding surgery tomorrow and being NPO after midnight. States aware and understands.
[2020-09-02 03:08] VITALS: BP 123/89
--- NOTE | 2020-09-02 07:47 | HC ---
[facility] [place] [address] CONSULTATION Name: ALVIN DE LA CRUZ Room #: 445-P ADM IN M.R.#: [id number] Admission: 08/31/20 Attend Phys: Devon Jasmine MD Discharge: Date of : 59 Report #: [id number] THIS REPORT FOR: cc: Cora Barros Christine L. DO Clymer, David J. MD ~ DATE OF SERVICE: 09/01/2020 CHIEF COMPLAINT: Left humerus injury. HISTORY: This is somewhat heavy and deconditioned 65-year-old female, fell at home yesterday injuring the left shoulder. X-rays in the Emergency Department revealed a proximal humerus fracture. Initially, the ER physician felt that she could probably go home and follow up as an outpatient. Subsequently, her pain was poorly controlled and so she was admitted for further evaluation and treatment. At the time of my evaluation, she is alert and oriented. She notes she has had previous similar injuries with an old right proximal humerus fracture, treated nonsurgically several years ago. She has some persistent stiffness and discomfort there. Her current injuries are almost entirely limited to the left upper arm region. She notes she does have some very minor neck and mid back discomfort as a result of her fall. She denies any other significant radiating symptoms into either upper extremity or lower extremities. Objectively, the left shoulder reveals quite a bit of bruising and swelling with discomfort on any attempted movement. The elbow, wrist and hand are a bit puffy and sore, but seemed to be stable and well aligned. The opposite right upper extremity reveals good movement at the shoulder, elbow, wrist and hand without significant new injuries. She seems to have no significant discomfort to palpation or movement of the neck, mid back or low back region. The lower extremities reveal satisfactory movement at the hip, knee and ankle bilaterally. There is no evidence of injury in the lower extremities. X-rays of the left shoulder reveal an oblique fracture in the upper third of the proximal humerus with several centimeters of displacement. The more proximal humerus and humeral head appeared to be intact and well positioned relative to the glenoid. IMPRESSION AND PLAN: Left proximal humerus fracture. I have discussed this at some length with the patient, reviewing treatment options, noting both surgical and nonsurgical treatment measures. Given the degree of displacement and instability, I suspect nonsurgical management would be likely to result in either nonunion or very slow, delayed union. Given this, I think surgical [address] [address] CONSULTATION Name: DE LA CRUZALVINMORRO LUX Room #: 445-P [facility] IN M.R.#: [id number] Admission: 08/31/20 Attend Phys: Devon Jasmine MD Discharge: Date of : 59 Report #: [id number] repair with a proximal fixation plate would be most appropriate. The patient understands and wishes to proceed. Pending medical clearance and surgical scheduling, we may be able to proceed tomorrow at the end of the day on 09/02/2019. If there are any limitations or scheduling issues, then we may need to delay until later in the week. In the meanwhile, she will continue on allergies, medications, and limited activity. Hopefully, we will plan to proceed to the operating room for surgical repair on 09/02/2019. <ELECTRONICALLY SIGNED> By: Antoni Whitaker MD 09/02/20 0747 [id number] [id number] Antoni Whitaker MD /nt
[2020-09-02 08:16] VITALS: BP 120/72
--- NOTE | 2020-09-02 12:15 | NUR ---
assumed care at 0700. pt has two IV. both IV ( right forearm and right chest ) are intact and shows no signs of redness or swelling. pt complain of extreme pain. pt was given fenatyl and slight improvement of pain but not enough to feel better. pt started to cry and asked for muscle spasms medication. Dr. Tobar ordered muscle spasm and gel for muscle cramps. By the time I wanted to give her muscle spasm medication at 11 AM. pt denies it and said she felt better after i gave her hydrocodone. pt is still a &o x 4. I can tell that pt is slightly " loopy" . I will continue to monitor pt before giving anymore strong pain medication. fall precaution. call light within reach. helped pt with mediation and relaxation for pain. pt is off npo due to surgery being pushed back to tomorrow 09/03 at 10. pt is aware. pt signed the consent after stating that she understands the procedure and risk and have no questions. This consent form was given earlier in the morning before giving hydrocodone. call light within reach. pt was up in the chair for one hour and back to bed. pt is currently on 2.0 on oxygen due to soa with exertion. pt complains of pain and denies n/v/d. pt has a poor appetite. will continue to monitor for pain.
[2020-09-02 17:00] VITALS: BP 90/55
[2020-09-02 19:34] VITALS: BP 109/72
--- NOTE | 2020-09-03 02:03 | NUR ---
ASSESSED AT START OF SHIFT.PT A&OX4 [place]. C/O PAIN 05/12 MANAGED BY PO PAIN PILL SEE EMAR. BSG CHECKED WITH INSULIN COVERAGE PROVIDED. PT NPO AT MIDNIGHT FOR SX IN THE AM. PT VOIDS VIA BED SANCHEZ WITH SOME INCONTINENCE. SCD'S ON BLE. FALL PREC IN PLACE AND CALL LIGHT IN REACH WILL CONT TO MONITOR.
[2020-09-03 05:30] VITALS: BP 98/62
[2020-09-03 07:30] VITALS: BP 150/95
[2020-09-03] MEDS ORDERED: ESCITALOPRAM OX20 MG PO (13:52)
[2020-09-03] MEDS ORDERED: CARVEDILOL25 MG PO (13:53)
[2020-09-03] MEDS ORDERED: NEURONTIN 300M300 M2 PO (13:54)
[2020-09-03] MEDS ORDERED: METFORMIN HCL500 M1 PO (13:56)
[2020-09-03 15:50] VITALS: BP 152/82
[2020-09-03 18:56] VITALS: BP 134/80
--- NOTE | 2020-09-03 20:04 | NUR ---
Assumed care of pt. at 0700. Pt. was calm and cooperative. Pt. was taken down for surgery at 0930. Pt. came back to floor in the afternoon. Pt. did not complain of pain, vitals were stable, pt. does seem fairly loopy still do to anethesia.
[2020-09-04] VITALS (15 sets, daily range): BP systolic 122–175; BP diastolic 74–107
[2020-09-04 05:30] LABS: HEMATOCRIT 23.3 % (37.0-47.0); HEMOGLOBIN 7.5 gm/dL (12.0-15.0)
--- NOTE | 2020-09-04 05:36 | NUR ---
ASSUMED PT CARE AT SHIFT CHANGE FROM PIETER (DAY-RN). PT WAS ORIENTED TO SELF FOR VERY BRIEF MOMENTS. THE SHIFT PROGRESSED THE PT WAS DISORIENTED X4. PT WAS ABLE TO VOICE THAT SHE WAS IN PAIN. PAIN MEDICATION WAS ADMINISTERED. PT IS INCONTINENT. PT DOES NOT CALL OUT WHEN WET. PT CONTINUES TO PICK AT HER LEFT SHOULDER DRESSING - TRIED TO REINFORCE ORIGINAL DRESSING. PT DID NOT SLEEP DURING THIS SHIFT. PT DID VOMIT CONTENTS FROM HER FRUIT CUP. BED ALARM ON AND CALL LIGHT IN REACH. WILL CONTIUE TO MONITOR.
[2020-09-04 06:02] LABS: POTASSIUM 3.9 mmol/L (3.5-5.1)
--- NOTE | 2020-09-04 07:58 | O ---
[facility] [place] [address] OPERATIVE REPORT Name: ALVIN DE LA CRUZ Room #: 445-P ADM IN M.R.#: [id number] Admission: 08/31/20 Attend Phys: Devon Jasmine MD Discharge: Date of : 59 Report #: [id number] THIS REPORT FOR: cc: Cora Barros,Antoni Serra MD ~ CC: Devon Barros DATE OF SERVICE: 09/03/2020 PREOPERATIVE DIAGNOSIS: Complex comminuted fracture, left proximal humerus. POSTOPERATIVE DIAGNOSIS: Complex comminuted fracture, left proximal humerus. PROCEDURE: Open reduction and internal fixation of left proximal humerus fracture. SURGEON: Antoni Whitaker MD. INDICATIONS: This frail 65-year-old female fell at home injuring the left shoulder. X-rays confirm a moderately comminuted and displaced fracture at the upper third of the left humerus. The humeral head appears to be well aligned with the glenoid. We have discussed treatment options and elected to go ahead with surgical repair. DESCRIPTION OF PROCEDURE: The patient was taken to the operating room where she was placed under general anesthesia and interscalene block was also applied. Prophylactic intravenous antibiotics were administered. The left shoulder and arm were meticulously prepped and draped. An anterior longitudinal skin incision was made and carried through subcutaneous tissues and fascia and along the deltopectoral groove. This was extended distally in a blunt fashion. The fracture was identified and cleared of clot and fibrous tissue. There was moderate comminution making realignment and fixation difficult. A proximal locking Synthes humeral plate was selected. This was applied and secured temporarily with several smooth K-wires, 7 proximal locking screws were placed with satisfactory purchase about the femoral head and neck region. The fracture was aligned and secured temporarily with several bone clamps. Five screws were placed distally in the shaft with satisfactory purchase. Her bone is mildly osteopenic making fixation somewhat difficult. Nevertheless, C-arm views demonstrated essentially anatomic alignment of the comminuted fracture and satisfactory position of the plate and screws. The wound was then copiously irrigated. Good hemostasis was confirmed. A single Hemovac was left in the wound exiting through a separate stab incision. The muscle fascia was closed with multiple #1 Vicryl sutures. The more superficial fascia and subcutaneous tissues were closed with 0 Monocryl. The skin was closed with skin brandon. A [address] [address] OPERATIVE REPORT Name: ALVIN DE LA CRUZ Room #: 445-P [facility] IN ..#: [id number] Admission: 08/31/20 Attend Phys: Devon Jasmine MD Discharge: Date of : 59 Report #: [id number] sterile dressing was applied. The patient was then awakened and returned to the recovery room in good condition. <ELECTRONICALLY SIGNED> By: Antoni Whitaker MD 09/04/20 0758 1243 1302 Antoni Whitaker MD /mar
--- NOTE | 2020-09-04 09:33 | NUR ---
ASSUMED CARE AT 0700. PT IS A
--- NOTE | 2020-09-04 09:44 | NUR ---
assumed care at 0700. pt is confused and oriented x3. pt is getting words backwards or say " blue , red, white " when I asked her a question about the weather. therefore, i hold narco medication due to cognitive. doctor montana has d/c narco medication and order tynelol for pain. pt is intolerating pain. pt is constantly moaning and crying, behavior change. pt is constantly trying to pick at the dressing and brandon on left shoulder. i educated patient multiple of times of the importance of leaving the brandon alone. pt understood but then 20 minutes later, pt will mess with brandon. pt denies nausea, vomitting, diarrhea, soa. pt is currently on 2.0 L of oxygen and tolerating well. I have to make sure that nc is on pt every time I go to the room. pt is feeling weak. fall precaution. call light within reach. pt is being turn q2 to help with skin intergity. LOC has decreased since I saw her on 09/02.Pulses are 1+, cap refill is less than 2 seconds. skin color is appropriate. Pt has motor function on left shoulder. no edema on left hand. will continue to monitor for pain, breathing, and incision. Scd hose are in place. both IV's are intact and shows no signs of redness or swelling. poor appetite. VSS. bp was high this morning but was given bp medication with food.
--- NOTE | 2020-09-04 13:01 | NUR ---
ON-GOING ASSESSMENT: PT IS S/P ORIF LEFT HUMERUS. PT/OT ORDERED FOR PATIENT. CM NOTIFIED [facility] TO SEE IF PT IS A CANIDATE. PT CURRENTLY HAS NO INSURANCE. MED ASSIST SAW PATIENT AND SUBMITTING APPLICATION AND WORKING ON GETTING DOCUMENTS. CM WILL CONTINUE TO FOLLOW TO ASSIST NEEDED.
--- NOTE | 2020-09-04 21:00 | NUR ---
CODE STROKE ACTIVATION ACTIVATED FOR CONFUSION AND DYSARTHRIA. INITIAL NIH COMPLETED WITH A SCORE OF 1. AMMONIA NITRATE OPERATOR EVALUATED PT AT BEDSIDE WITH ORDERS RECEIVED. PT TRANSFERRED TO CCT FOR CONTINUOUS MONITORING AND NIH ASSESSMENTS. SEE NIH SCALE PAPER DOCUMENTATION FOR FURTHER DETAILS.
[2020-09-04 21:27] LABS: HEMATOCRIT 25.3 % (37.0-47.0); HEMOGLOBIN 8.3 gm/dL (12.0-15.0); MCHC 32.6 g/dL (28.0-37.0); MCV 79.8 fL (80.0-100.0); RBC 3.17 mil/uL (4.20-5.00); RDW 17.7 % (10.5-14.5); WBC 7.5 thou/uL (4.0-11.0)
[2020-09-04 21:41] LABS: ANION GAP 8 mmol/L (7-16); BUN 6 mg/dL (7-18); CALCIUM 8.8 mg/dL (8.5-10.1); CHLORIDE 103 mmol/L (98-107); CO2 30 mmol/L (21-32); CREATININE 0.8 mg/dL (0.6-1.0); GLUCOSE 153 mg/dL (74-106); POTASSIUM 3.2 mmol/L (3.5-5.1); SODIUM 141 mmol/L (136-145)
[2020-09-04 21:44] LABS: TROPONIN-I <0.06 ng/mL (<0.06)
[2020-09-04 21:52] LABS: APTT 18.5 Seconds (24.5-32.8); FIBRINOGEN 359.5 mg/dL (210-360); PROTIME 10.7 Seconds (9.3-11.4)
[2020-09-05 03:58] VITALS: BP 148/87
--- NOTE | 2020-09-05 06:15 | NUR ---
UPON SHIFT REPORT PT NOTED TO BE RESTLESS WITH SLURRED SPEECH. SLURRED SPEECH AND CONFUSION REPORTED ON SHIFT REPORT. PT AOX3, TO PERSON, PLACE, AND SITUATION. PT REPORTS MONTH JULY. PT ASSESSED WITH NIH OF 3. CODE STROKE ACTIVATED AT 2005. VITALS CONTINUALLY ASSESSED WHILE ON FLOOR. PT TRANSFERRED TO CT. PT TRANSFERRED BACK TO UNIT. [facility] DI[facility]NOSTICIAN ON UNIT, ORDERS RECEIVED FOR MRI WITHOUT CONTRAST FOR THE MORNING AND NEURO CONSULT. PT TO BE TRANSFERRED TO ROOM 203. REPORT GIVEN TO DIETER VILA AT 2315, PT TRANSFERRED TO UNIT AT 2330. PT DAUGHTER, STEVAN NOTIFIED OF PT STATUS UPDATE AND ROOM TRANSFER.
--- NOTE | 2020-09-05 07:03 | EKG ---
[facility] [place] [address] ELECTROCARDIOGRAM REPORT Name: ALVIN DE LA CRUZ Room #: 203-P ADM IN M.R.#: [id number] Admission: 08/31/20 Attend Phys: Devon Jasmine MD Discharge: Date of : 59 Report #: [id number] THIS REPORT FOR: cc: Cora Barros Christine L. DO Santiago, Patrick MD [facility] ~ THIS REPORT FOR: //name// [facility] Test Date: 2020-09-04 Test Time: 21:17:12 Pat Name: ALVIN DE LA CRUZ Department: Room: [facility] Gender: F [employer] Operator: HARSHIL : 1955 Requested By: Maureen Braden Order Number: [id number] MD: Steffen Kaur Measurements Intervals [place] Rate: 81 P: 32 ME: 173 QRS: -25 QRSD: 92 T: -3 QT: 406 QTc: 472 Interpretive Statements Sinus rhythm Atrial premature complexes Borderline left axis deviation Compared to ECG 04/28/2020 14:11:01 Atrial premature complex(es) now present Poor R-wave progression no longer present Electronically Signed On 09-05-2020 7:02:50 MANAGER TRAINING by Steffen Kaur [email or web address] <ELECTRONICALLY SIGNED> By: Steffen Kaur MD, FACC 09/05/20701 16 16 Steffen Kaur MD, FAC /EPI
[2020-09-05 07:04] LABS: URINE BILIRUBIN NEGATIVE (Negative); URINE BLOOD NEGATIVE (Negative); URINE CLARITY CLEAR; URINE COLOR YELLOW; URINE GLUCOSE-RANDOM* NEGATIVE (Negative); URINE KETONES 1+ (Negative); URINE LEUKOCYTES-REFLEX NEGATIVE (Negative); URINE NITRITE-REFLEX NEGATIVE (Negative); URINE PROTEIN (DIPSTICK) NEGATIVE (Negative); URINE SPECIFIC GRAVITY 1.015 (1.005-1.035)
[2020-09-05 07:30] VITALS: BP 122/86
--- NOTE | 2020-09-05 09:02 | NUR ---
TRANSFER FROM FOR OBSERVATION; ALERT AND ORIENTED/ CONFUSED WITH SLURRED SPEECH AND MUMBLING AT TIMES; ON 2L N/C WITH GOOD OXYGEN SATs; LT SHOULDER IMMOBILIZED WITH HEMOVAC IN PLACE; EXTERNAL FEMALE CATHETER IN PLACE; C/O OF PAIN TO SHOULDER AND HEAD MANAGED WITH MEDICATION; PLAN IS FOR PATIENT TO CONTINUE TO REMAIN IN CCU FOR OBSERVATION AND CONSULTS; WILL CONTINUE TO MONITOR.
[2020-09-05 11:35] VITALS: BP 153/77
--- NOTE | 2020-09-05 14:57 | NUR ---
Case discussed with the care team. No weekend dc anticipated. [facility] is evaluating along with PT/OT/ST. Potts workup in [facility] for possible stroke. [place] medicaid application in progress as well with [employer]. Will follow.
[2020-09-05 15:20] VITALS: BP 127/74
--- NOTE | 2020-09-05 15:59 | NUR ---
ASSUMED CARE OF PT AT SHIFT CHANGE. ASSESSMENTS CHARTED. MEDS GIVEN PER DEC. PT A&OX3-4, C/O PAIN TREATED WITH TYLENOL WITH LITTLE RELIEF. SURGICAL DRAIN REMOVED AND IMPROVED SHOULDER PAIN. TAKES EXTRA TIME TO FIND WORDS. OCCASIONALLY ANXIOUS. WILL CONTINUE TO MONITOR AND FOLLOW POC.
[2020-09-05 17:35] VITALS: BP 127/74
[2020-09-05 19:30] VITALS: BP 114/59
[2020-09-06 03:30] VITALS: BP 148/82
[2020-09-06 03:52] LABS: HEMATOCRIT 22.9 % (37.0-47.0); HEMOGLOBIN 7.5 gm/dL (12.0-15.0); MCH 26.1 pg (26.0-34.0); MCHC 32.6 g/dL (28.0-37.0); RBC 2.87 mil/uL (4.20-5.00); RDW 18.3 % (10.5-14.5)
[2020-09-06 03:57] LABS: CALCIUM 8.6 mg/dL (8.5-10.1); CREATININE 0.7 mg/dL (0.6-1.0); MAGNESIUM 1.9 mg/dL (1.8-2.4); POTASSIUM 3.7 mmol/L (3.5-5.1)
[2020-09-06 04:04] LABS: CHOLESTEROL 127 mg/dL (<200); HDL CHOLESTEROL 41 mg/dL (>40); LDL CHOLESTEROL 66 mg/dL (<100); TC:HDL 3.1 Ratio (Not establshd); TRIGLYCERIDE 101 mg/dL (<150); VLDL 20 mg/dL (<40)
[2020-09-06 04:06] LABS: SERUM ASSESSMENT Clear
--- NOTE | 2020-09-06 06:31 | NUR ---
ASSUMED CARE OF THE PATIENT AT 1900; ORIENTED TO SELF, PLACE, AND SITUATION WITH CONFUSION; NO C/O OF PAIN TO LT SHOULDER; SR ON THE MONITOR WITH HEART RATE 70-80s; STOOL SAMPLE COLLECTED PER ORDER WITH RESULTS PENDING WITH HGB 7.5 ON 09/06/20 FROM 8.3 ON 09/04/20; SLEPT QUIETLY THROUGHOUT THE NOC; PLAN IS TO AWAIT FINAL RECOMMENDATIONS FROM CASE MANAGEMENT AND CONSULTS REGARDING D/C AND POSSIBLE REHAB; WILL CONTINUE TO MONITOR.
[2020-09-06 07:44] VITALS: BP 133/96
[2020-09-06 11:25] VITALS: BP 133/76
[2020-09-06 15:20] VITALS: BP 121/72
--- NOTE | 2020-09-06 17:37 | NUR ---
ASSUMED CARE OF PT AT SHIFT CHANGE. ASSESSMENTS CHARTED. MEDS GIVEN PER DEC. PT A&OX4, SPEECH SLURRED A BIT. FEELING BETTER, LESS PAIN. PAIN TREATED WITH TYLENOL WITH PARTIAL RELIEF. WILL CONTINUE TO MONITOR AND FOLLOW POC.
[2020-09-06 20:50] VITALS: BP 127/69
--- NOTE | 2020-09-07 03:27 | NUR ---
PT TRANSFERRED FROM [facility] THIS SHIFT. A&OX3* IV IN RT CHEST INTACT WITH FLUIDS INFUSING. PT INCONTINENCE WITH FREQUENCY SUPRAPUBIC CATH IN PLACE. PT ABLE TO REPOSITION SELF IN BED. BSG CHECKED NO COVERAGE. TYLENOL GIVEN FOR LEFT SHOULDER PAIN. FALL PREC IN PLACE AND WILL CONT TO MONITOR.
[2020-09-07 04:37] VITALS: BP 121/69
[2020-09-07 05:05] LABS: CALCIUM 8.7 mg/dL (8.5-10.1); CREATININE 0.6 mg/dL (0.6-1.0); MAGNESIUM 1.8 mg/dL (1.8-2.4); POTASSIUM 3.7 mmol/L (3.5-5.1)
[2020-09-07 05:19] LABS: HEMATOCRIT 22.5 % (37.0-47.0); HEMOGLOBIN 7.3 gm/dL (12.0-15.0); MCH 26.1 pg (26.0-34.0); MCHC 32.7 g/dL (28.0-37.0); MCV 79.7 fL (80.0-100.0); RBC 2.82 mil/uL (4.20-5.00); RDW 18.1 % (10.5-14.5); WBC 4.2 thou/uL (4.0-11.0)
[2020-09-07 08:00] VITALS: BP 141/78
--- NOTE | 2020-09-07 11:25 | NUR ---
assumed care at 0700. pt is a&o x4. pt is doing much better than last thrusday. pt is still feeling weak on the left shoulder with edema on left elbow. pt is currently is out of the bed on the chair. fall precaution. call light within reach. pt is still incontienent. continue to monitor for wettness q2. poor diet. hard time swallowing potassium pills with applesauce. z guard is placed on biniki line that shows redness. pt complains of pain and was given tynelol. pt complains of nausea and was given zofran. pt is tolerating well. vss. pt denies vomitting and soa. will continue to monitor. iv on right chest shows no signs of redness or swelling. Fluids are going at 80 ml/hr. dressing on left shoulder is reapplied and intact. scd hose are in place.
[2020-09-07 16:00] VITALS: BP 140/82
--- NOTE | 2020-09-07 21:13 | NUR ---
1900 assumed care of pt after bedside report, pt up in chair watching television. 2030 baseline assessment completed, sling in place to left arm, pt remains in chair and would like to stay for awhile longer, refusing fluids stating she is fully hydrated, also refusing scds stating she is doing leg exercises hourly. Fall precautions in place, will continue to monitor
[2020-09-08 04:45] VITALS: BP 154/91
[2020-09-08 05:52] LABS: HEMATOCRIT 23.1 % (37.0-47.0); HEMOGLOBIN 7.4 gm/dL (12.0-15.0); MCH 25.7 pg (26.0-34.0); MCHC 32.2 g/dL (28.0-37.0); MCV 79.7 fL (80.0-100.0); RBC 2.9 mil/uL (4.20-5.00); RDW 18.7 % (10.5-14.5); WBC 4.7 thou/uL (4.0-11.0)
[2020-09-08 06:08] LABS: CALCIUM 8.6 mg/dL (8.5-10.1); CREATININE 0.7 mg/dL (0.6-1.0); POTASSIUM 4.3 mmol/L (3.5-5.1)
[2020-09-08 07:50] VITALS: BP 119/66
--- NOTE | 2020-09-08 12:43 | NUR ---
[facility] can accept the pt when medically cleared. [facility] to get [place] copy of her [place] for cm to provide to the [facility] liason. Pt having some dizziness with therapy today. All parties anticipating likely dc to acute rehab tomorrow. Discussed with the care team.
--- NOTE | 2020-09-08 13:57 | 2DMMODE ---
[facility] [address] 2 D/M-MODE ECHOCARDIOGRAM Name: ALVIN DE LA CRUZ Room #: 447-P ADM IN M.R.#: [id number] Admission: 08/31/20 Attend Phys: Devon Jasmine MD Discharge: Date of : 59 Report #: [id number] THIS REPORT FOR: cc: Cora Barros Christine L. DO Santiago, Patrick MD [facility] ~ APPROVED REPORT Study performed: 09/08/2020 12:19:42 EXAM: Comprehensive 2D, Doppler, and color-flow Echocardiogram Patient Location: Bedside Room #: [facility] Status: routine BSA: 2.06 HR: 71 bpm BP: 119/66 mmHg Rhythm: NSR Other Information Study Quality: Adequate Technically limited study due to obesity. Indications Stroke. Hx: HTN, HLP, DM. Echo Enhancing Agent Indication: Rule out Shunt Agent(s) / Amount(s) Used: Agitated Saline 6 cc 2D Dimensions RVDd: 30.30 mm IVSd: 12.81 (7-11mm) LVOT Diam: 21.14 (18-24mm) LVDd: 49.15 mm PWd: 12.00 (7-11mm) Ascending Ao: 33.54 (22-36mm) LVDs: 27.00 (25-40mm) Aortic Root: 27.84 mm Volumes Left Atrial Volume (Systole) Single Plane 4CH: 54.05 mL Single Plane 2CH: 36.49 mL Aortic Valve [facility] [address] [place] [address] 2 D/M-MODE ECHOCARDIOGRAM Name: ALVIN DE LA CRUZ Room #: 447-P [facility] IN .R.#: [id number] Admission: 08/31/20 Attend Phys: Devon Jasmine MD Discharge: Date of : 59 Report #: [id number] AoV Peak Leon.: 1.52 m/s AO Peak Gr.: 9.19 mmHg LVOT Max P.21 mmHg LVOT Max V: 1.14 m/s OBED Vmax: 2.64 cm2 Mitral Valve E/A Ratio: 0.8 MV Decel. Time: 238.59 ms MV E Max Leon.: 0.70 m/s MV A Leon.: 0.87 m/s MV PHT: 69.19 ms IVRT: 119.95 ms Pulmonary Valve PV Peak Leon.: 0.94 m/s PV Peak Gr.: 3.53 mmHg Pulmonary Vein P Vein S: 0.36 m/s P Vein A: 0.22 m/s P Vein D: 0.32 m/s P Vein A Dur.: 115.3 msec P Vein S/D Ratio: 1.13 Tricuspid Valve TR Peak Leon.: 2.95 m/s RAP Estimate: 5.00 mmHg TR Peak Gr.: 35.00 mmHg PA Pressure: 40.00 mmHg Left Ventricle The left ventricle is normal size. There is normal LV segmental wall motion. Mild concentric left ventricular hypertrophy. Left ventricular systolic function is normal. LVEF is 65%. Mild diastolic dysfunction is present (impaired relaxation pattern). Right Ventricle The right ventricle is normal size. The right ventricular systolic function is normal. Atria Left atrium is dilated. No shunting with contrast bubble injection. The right atrium size is normal. Aortic Valve The aortic valve is normal in structure. No aortic regurgitation is present. There is no aortic valvular stenosis. Mitral Valve The mitral valve is normal in structure. There is no mitral valve [facility] [address] [place] [address] 2 D/M-MODE ECHOCARDIOGRAM Name: DE LA CRUZALVINMORRO LUX Room #: 447-P [facility] IN .R.#: [id number] Admission: 08/31/20 Attend Phys: Devon Jasmine MD Discharge: Date of : 59 Report #: [id number] regurgitation noted. No evidence of mitral valve stenosis. Tricuspid Valve The tricuspid valve is normal in structure. Mild tricuspid regurgitation. Estimated PAP is 40mmHg. Pulmonic Valve Pulmonic valve is not well visualized. Trace pulmonic regurgitation. Great Vessels The aortic root is normal in size. The ascending aorta is normal in size. IVC is normal in size and collapses >50% with inspiration. Pericardium There is no pericardial effusion. <Conclusion> Normal left ventricle size, mild concentric hypertrophy Ejection fraction 65% Grade 1 diastolic dysfunction Normal left ventricle size and function Mild left atrial enlargement Normal aortic/mitral valve structure and function Mild tricuspid valve insufficiency PA pressure systolic estimated at 40 mmHg Abnormal pericardial effusion <ELECTRONICALLY SIGNED> By: Steffen Kaur MD, FACC 09/08/20 1357 1357 135 Steffen Kaur MD, FACC /INF
[2020-09-08 16:58] VITALS: BP 100/60
--- NOTE | 2020-09-08 21:13 | NUR ---
1900 ASSUMED CARE OF PT AFTER REPORT 2100 PT RESTING IN CHAIR, BASELINE ASSESSMENT COMPLETED, PT STATES PAIN OF 8/10 BUT WISHES TO WAIT FOR PAIN MEDICINE, REFUSES SCD'S DRINKING COKE NOT DIET FROM HOME, CBG 96 NO INSULIN INDICATED. FALL PRECAUTIONS IN PLACE, PT IS PLEASANT AND EXCITED TO GO TO REHAB.
[2020-09-08 21:17] VITALS: BP 120/70
[2020-09-08 22:46] LABS: URINE BILIRUBIN NEGATIVE (Negative); URINE BLOOD 1+ (Negative); URINE CLARITY SL CLOUDY; URINE COLOR YELLOW; URINE GLUCOSE-RANDOM* NEGATIVE (Negative); URINE KETONES NEGATIVE (Negative); URINE NITRITE-REFLEX NEGATIVE (Negative); URINE PROTEIN (DIPSTICK) NEGATIVE (Negative); URINE SPECIFIC GRAVITY <= 1.005 (1.005-1.035); URINE UROBILINOGEN 0.2 E.U./dl (0.2-1.0)
[2020-09-08 22:58] LABS: URINE LEUKOCYTES-REFLEX 3+ (Negative)
[2020-09-08 23:00] LABS: BACTERIA-REFLEX >30 Many /HPF (None Seen); MUCUS 0-3 Light strn/LPF (None Seen); SQUAMOUS 0-3 Few /LPF (0-3); URINE RBC 3-10 Few /HPF (0-2)
[2020-09-08 23:01] LABS: CASTS None Seen /LPF (None Seen); CRYSTALS None Seen /LPF (None Seen)
[2020-09-09 01:58] VITALS: BP 144/71
--- NOTE | 2020-09-09 07:04 | NUR ---
Pt slept in chair last night, and appeared less painful, has slept most of night
--- NOTE | 2020-09-09 07:24 | NUR ---
Report to Ute GARCIAS
[2020-09-09 08:19] VITALS: BP 120/78
[2020-09-09 09:13] VITALS: BP 120/78
[2020-09-09] MEDS ORDERED: LIDOPATCH1 EACH TRANSDERM (12:52)
[2020-09-09] MEDS ORDERED: ACETAMINOPHEN325 M1 PO (12:52)
[2020-09-09] MEDS ORDERED: HUMALOG100 UNIT/1 SUBQ (12:52)
[2020-09-09] MEDS ORDERED: TRAMADOL 50 MG50 MG PO (12:52)
[2020-09-09] MEDS ORDERED: COLACE 100 MG100 MG PO (12:52)
[2020-09-09] MEDS ORDERED: GLUCAGEN1 MG/1 ML IM (12:52)
[2020-09-09] MEDS ORDERED: IRON325 PO (12:52)
[2020-09-09] MEDS ORDERED: PROTONIX 20 MG20 M1 PO (12:52)
[2020-09-09] MEDS ORDERED: ENOXAPARIN40 MG/0.1 SUBQ (12:52)
[2020-09-09] MEDS ORDERED: LEVOFLOXACIN250 MG PO (12:52)
--- NOTE | 2020-09-09 13:11 | NUR ---
ON-GOING ASSESSMENT: PT HAS ORDERS TO DISCHARGE TODAY TO [facility]. [facility] STATING THEY CAN ACCEPT HER TODAY. CM CONTACTED PTS DAUGHTER STEVAN TO NOTIFY HER. [facility] [employer] HAS ALSO BEEN WORKING WITH PATIENT AND HAS FILED MEDICAID [place] AND WORKING ON GETTING DOCUMETNATION. CM PROVIDED PATIENTS DAUGHTER STEVAN WITH [employer] ASSIST CONTACT INFORMATION.
--- NOTE | 2020-09-09 15:02 | NUR ---
PT IS AOX4, VSS, PAIN CONTROLLED WITH ORAL ANALGESIC. LEFT ARM SLING IN PLACE. TOLERATING DIET WELL. UP WITH SB ASSIST TO BSC. INCONTINENT OF URINE, USING EXTERNAL CATH. CALL APPROPRIATELY, IV D/C'D. TRANSFERRED TO REHAB. PT BELONGINGS PACKED AND SENT WITH PT.
== END 2020-09-09 15:27 | DRG 492 ==
LOC: ER 12:55 → 4S 16:20 → EROBS 16:20 → ER 19:42 → 4S 21:14 → 2N 09-04 23:03 → 4S 09-06 20:43
PROVIDERS: Internal Medicine; Nurse Practitioner; Nurse Practitioner Family; Orthopaedic Surgery; ADMIT Hospitalist; ATTEND Hospitalist
PROC: 0PSD04Z Reposition Left Humeral Head with Internal Fixation Device, Open Approach (ICD-10-PCS; principal; 2020-09-03)
DX: S42.202A Unspecified fracture of upper end of left humerus, initial encounter for closed fracture (principal); G93.41 Metabolic encephalopathy; N39.0 Urinary tract infection, site not specified; I10 Essential (primary) hypertension; E78.00 Pure hypercholesterolemia, unspecified; F41.9 Anxiety disorder, unspecified; F32.9 Major depressive disorder, single episode, unspecified; E11.42 Type 2 diabetes mellitus with diabetic polyneuropathy; K58.9 Irritable bowel syndrome, unspecified; D64.9 Anemia, unspecified; E87.6 Hypokalemia; Z20.828 Contact with and (suspected) exposure to other viral communicable diseases; Z90.49 Acquired absence of other specified parts of digestive tract; Z90.710 Acquired absence of both cervix and uterus; Z88.8 Allergy status to other drugs, medicaments and biological substances; W18.39XA Other fall on same level, initial encounter; Y93.89 Activity, other specified; Y92.89 Other specified places as the place of occurrence of the external cause; Y99.8 Other external cause status
CPT/HCPCS: 10081; 10100; 10195; 50010; 50101; 50386; 50417; 51412; 56525; 62110; 62900; 64043; 65060; 70005

== ENCOUNTER 2020-09-09 11:42 | Inpatient (IN) | payer OTHER ==
[~2020-09-09] VITALS: Ht 165.1 cm; Wt 99.5 kg
[~2020-09-09 11:42] MED LIST changes: +CARVEDILOL25 MG PO; +ESCITALOPRAM OX20 MG PO; +METFORMIN HCL500 M1 PO; +NEURONTIN 300M300 M2 PO
[2020-09-09] MEDS ORDERED: ENOXAPARIN40 MG/0.1 SUBQ (12:52)
[2020-09-09] MEDS ORDERED: TRAMADOL 50 MG50 MG PO (12:52)
[2020-09-09] MEDS ORDERED: LIDOPATCH1 EACH TRANSDERM (12:52)
[2020-09-09] MEDS ORDERED: HUMALOG100 UNIT/1 SUBQ (12:52)
[2020-09-09] MEDS ORDERED: ACETAMINOPHEN325 M1 PO (12:52)
[2020-09-09] MEDS ORDERED: LEVOFLOXACIN250 MG PO (12:52)
[2020-09-09] MEDS ORDERED: PROTONIX 20 MG20 M1 PO (12:52)
[2020-09-09] MEDS ORDERED: COLACE 100 MG100 MG PO (12:52)
[2020-09-09] MEDS ORDERED: IRON325 PO (12:52)
[2020-09-09] MEDS ORDERED: GLUCAGEN1 MG/1 ML IM (12:52)
[2020-09-09 15:15] VITALS: BP 99/61
--- NOTE | 2020-09-09 16:34 | NUR ---
PATIENT ARRIVED TO UNIT AT 1515 AND REQUESTED TO SIT UP IN CHAIR INSTEAD OF IN THE BED. SHE TRANSFERRED WITH MIN ASSIST OF 2 STAFF WITH STAND PIVOT. LEFT ARM IS IN SLING AND DRESSING IS C/D/I TO LT ARM. NOTED MUCH BRUISING THROUGHOUT, AND DURIGN ADMISSION ASSMT, PT WAS ITCHING DRY SKIN AND STATED THAT SHE ISN'T SURE WHY SHE IS ITCHY. NO RASH NOTED. PT DOES REPORT DIABETIC NEUROPATHY, AND STATED THAT SHE THINKS THAT THIS IS WHY SHE FELL AT HOME. SHE STATED THAT SHE HIT HER HEAD WHEN SHE FELL, AND THIS, COUPLED WITH NARCOTIC USE FROM HER SHOULDER POSTOP, AND A UTI, CAUSED HER TO HAVE MEMORY ISSUES, AND TO "NOT MAKE SENSE" A COUPLE OF DAYS AGO, BUT SHE STATED THAT THIS IS GETTING BETTER. NOTED OCCASIONAL SLURRING OF WORDS, BUT SPEECH OTHERWISE CLEAR. PATIENT WORRIED THAT SHE IS INDEPENDENT AND LIVES ALONE, AND FAMILY HAS COVID AND IS CURRENTLY UNABLE TO ASSIST HER AT HOME. SHE NOTED THAT SHE THINKS THAT THIS MAY CAUSE AN ISSUE IF WE DISCHARGE HER TOO EARLY. ENCOURAGED PT TO PARTICIPATE IN OT AND PT, AND WE WILL CONTINUE TO EVALUATE AND TEACH HER TO DO ALL SHE CAN ON HER OWN. PT CURRENTLY DENIES PAIN, AND WAS MEDICATED PRIOR TO MOVING TO [facility] PER RN REPORT. LEFT HAND NEURO CHECKS ARE WNL. PT DENIES A DESIGNATED VISITOR AT THIS TIME, STATING THAT THERE IS NO ONE WHO WOULD BE OK TO COME BECAUSE THEY ALL HAVE KIDS WHO GO TO SCHOOL AND IT PUTS THEM AT RISK FOR SPREADING COVID 19. SHE STATED THAT A FRIEND CAN HELP HER AT DC TO GET HOME, BUT SHE WILL HAVE TO MANAGE INDEPENDENTLY. REPORT GIVEN TO PRIMARY RN FOR THE REST OF THE SHIFT.
--- NOTE | 2020-09-09 18:11 | NUR ---
PT ARRIVED AT 1500 FROM [facility], ALERT AND ORIENTED*4. PREMEDICATED FOR PAIN PRIOR TO TRANSFER, PT DENIES PAIN UPON ARRIVAL. VITALS REMAIN STABLE. DARSHAN ON LEFT SHOULDERS ARE INTACT. IV ON RIGHT BREAST DC'D, HAD CLOTTED OFF. PT UP TO THE BATHROOM WITH 1 MIN ASSIST, GB AND WALKER WITH LEFT ARM IMMOBILISER IN PLACE. Q1H VISUAL CHECKS. CALL LIGHT WITHIN REACH. FALL PRECAUTIONS IN PLACE
[2020-09-09 20:51] VITALS: BP 105/70
[2020-09-09 22:00] VITALS: BP 154/96
[2020-09-09 22:04] VITALS: BP 154/96
[2020-09-10 00:03] VITALS: BP 136/79
--- NOTE | 2020-09-10 01:11 | NUR ---
FALL AT 2200 WAS HEARD BUT NOT SEEN. PATIENT WAS ALERT AND UPSET THAT SHE HAD FALLEN, WAS ABLE TO STAND WITH 1 PERSON ASSIST AND GAIT BELT ONCE SHE GOT HER LEGS IN FRONT OF HER. PATIENT ALERT AND ORIENTED TIMES 4 BUT COULD NOT REMEMBER WHY SHE GOT OUT OF BED, THERE WAS URINE ON THE FLOOR. NO INJURY OTHER THAN A GRAPE-SIZED BUMP ON POSTERIOR SKULL. HOSPITALIST ORDERED CT SCAN, ORTHO SERVICE ORDERED 2 VIEW OF HUMERUS, AWAITING RESULTS. PATIENT PREFERS WE WAIT UNTIL DAYLIGHT TO INFORM STEVAN, BY THEN WE SHOULD HAVE RADIOLOGY REPORTS SHOWING NOTHING UNTOWARD.
--- NOTE | 2020-09-10 06:00 | NUR ---
INCONTINENT AT 0400, UP TO BSC WITH MINIMAL ASSIST FOR 300 CC VOID.
[2020-09-10 06:04] LABS: HEMATOCRIT 23.9 % (37.0-47.0); HEMOGLOBIN 7.6 gm/dL (12.0-15.0); MCH 25.5 pg (26.0-34.0); MCHC 31.6 g/dL (28.0-37.0); MCV 80.7 fL (80.0-100.0); RBC 2.96 mil/uL (4.20-5.00); RDW 18.6 % (10.5-14.5); WBC 4.3 thou/uL (4.0-11.0)
[2020-09-10 06:18] LABS: CALCIUM 8.8 mg/dL (8.5-10.1); CREATININE 0.7 mg/dL (0.6-1.0)
[2020-09-10 06:57] LABS: FOLIC ACID 4.6 ng/mL (8.6-58.9)
[2020-09-10 07:30] VITALS: BP 107/70; BP 134/82
[2020-09-10 07:43] VITALS: BP 107/70
--- NOTE | 2020-09-10 08:20 | NUR ---
ATTEMPT TO CALL STEVAN AND INFORM HER THAT PATIENT FELL LAST EVENING UNSUCCESSFUL, PHONE # [phone] IS "NOT IN SERVICE AT THIS TIME"
--- NOTE | 2020-09-10 13:22 | NUR ---
Nutrition: Pt admitted with encephalopathy multifactorial, left humerus fx, S/P ORIF on 09/03. Cnosult received related to poor intake. Pt admits to decreased appetite with highly variable intake of meals however no weight loss. BMI 36, class [address] followed for prior dysphagia chopped diet need-AMS/slurred speech related to increased pain meds. Diet is now upgraded to carb controlled, regular consistency. BG mostly controlled. Noted magic cup supplements has been ordered which is high in sugar. Will change to Glucerna once daily. Discussed with pt. No food preferences provided. Discussed choosing nutrient dense foods first, goal > 75% meals. Will follow for improved PO trends but place as low risk with interventions in place.
--- NOTE | 2020-09-10 15:43 | NUR ---
chart review. denia visited with grant at bedside, cm cont to wear face mask and shield. intro to cm, team meeting and dcp. she is A 7 o x 3, pleasant, able to make her needs know, some forgetfulness and confusion. noted she would change subject in middle on sentence. " smash piecer if need help will go and stay with my daughter but they all have covid so not sure when i would go. live alone 4 steps to enter. independent when feeling ok. fell at home and then i guess fell last night to, but nothing broken. have cane and walker. manage own medication. drives vehicle."/grant. noted she has sling on left arm. no past hh or skilled rehab in past. will cont following as needed for dc needs. denia spoke with daughter darwin and she confirmed " yes she going to stay with us if she does not need any other rehab after she done a [facility] acute rehab, thanks for calling"/daughter darwin.
--- NOTE | 2020-09-10 17:00 | NUR ---
PATIENT IS ALERT, AND ORIENTED X 3-4 ABLE TO VOICE NEED, CAN BE FORGETFUL AT TIMES. LUNGS DIMINISHED, BUT CLEAR TO AUSCULTATION IN ALL LOBE. BS+X4, ABD SOFT, NON-TENDER TO TOUCH. PATIENT IS EATING MEALS, AND DRINKING FLUID WELL. PATIENT TOOK ALL MEDICATION WHOLE WITHOUT DIFFICULTY. IMMOBILIZER IN PLACE TO LEFT TO ARM, DRESSING INTACT TO SURGICAL SITE. PRN TRAMADOL GIVEN AT 1038HOURS FOR PAIN OF 6/10, WITH POSITIVE EFFECT. NO FURTHER C/O PAIN VOICED. NO SIGNS/SYMPTOMS OF HYPER/HYPOGLYCEMIA NOTED. FALL PRECAUTION OBSERVED, NO SIGN OF ACUTE DISTRESS NOTED, CALL LIGHT IN REACH, WILL MONITOR FOR SAFETY.
[2020-09-10 20:11] VITALS: BP 109/53
--- NOTE | 2020-09-11 03:23 | NUR ---
ASSUMED CARE OF PT AT 1900. PT IS A/O X4 AND IS UP WITH ASSISTANCE X1 TO CHAIR OR BSC. LEFT ARM SLING IN PLACE FOR IMMOBILIZATION. PT C/O PAIN. PRN PAIN MEDICATION GIVEN PER DEC. PT HAS NOT SLEPT VERY MUCH TONIGHT STATING THAT THE PAIN IS KEEPING HER UP. HAS HAD TWO EPISODES OF INCONTINENCE. WEARS OWN PULLUPS AND ARE KEPT IN HER ROOM. ROOM AIR. VSS. MEDICATIONS GIVEN WHOLE WITH WATER AND TOLERATED WELL. AT THIS TIME, PT IS LYING IN HER BED AND APPEARS TO BE WATCHING TV. FALL PRECAUTIONS ARE IN PLACE, CALL LIGHT IS WITHIN REACH. WILL CONTINUE TO MONITOR.
[2020-09-11 09:30] VITALS: BP 88/52
[2020-09-11 14:36] VITALS: BP 96/65
--- NOTE | 2020-09-11 16:23 | NUR ---
ASSUMED CARES AT 0700. PT AWAKE, ALERT AND ORIENTED*4 BUT FORGETFUL. DENIES PAIN AT THIS TIME. HYPOTENSIVE DURING PHYSICAL THERAPY THIS AM, PATIENT STATED THAT SHE FELT LIKE SHE WOULD PASS OUT. HOSPITALIST NOTIFIED AND MEDICATIONS ADJUSTED, PT ENCOURAGED TO INCREASE ORAL FLUIDS. ABDOMEN FIRM AND DISTENDED, ACTIVE BS, MIRALAX AND MAG CITRATE ADMINISTERED ORDERED, NO BM NOTED. LEFT HUMEROUS INCISION REMAINS DRY AND INTACT, DARSHAN ARE INTACT. LEFT ARM SLING REMAINS IN PLACE FOR COMFORT. PT UP WITH 1 MIN ASSIST, GB AND WALKER. Q1H VISUAL CHECKS. CALL LIGHT WITHIN REACH. FALL PRECAUTIONS IN PLACE
[2020-09-11 19:57] VITALS: BP 98/57
--- NOTE | 2020-09-11 23:58 | NUR ---
ASSUMED CARE OF PT AT 1915. PT IS A&OX4. IS ON ROOM AIR. IS STABLE. DENIES PAIN. IS UP WITH MIN ASSISTX1, GB, WALKER. FALL PRECAUTIONS & HOURLY ROUNDING CONTINUED THIS SHIFT. LABS & VITALS REVIWED. IS ABLE TO TURN SELF IN BED. WILL CONTINUE TO MONITOR.
[2020-09-12 08:00] VITALS: BP 99/56
[2020-09-12 09:00] VITALS: BP 92/62
[2020-09-12 14:07] LABS: ABSOLUTE NEUTROPHILS 3.1 thou/uL (1.4-8.2); BASOPHILS 0.4 % (0.0-2.0); HEMATOCRIT 23.4 % (37.0-47.0); HEMOGLOBIN 7.4 gm/dL (12.0-15.0); LYMPHOCYTES 24.4 % (24.0-44.0); MCH 25.9 pg (26.0-34.0); MCHC 31.6 g/dL (28.0-37.0); MCV 82.1 fL (80.0-100.0); MONOCYTES 7.8 % (1.0-8.0); PLATELET COUNT 251 thou/uL (150-400); POLYS 63.4 % (36.0-66.0); RBC 2.85 mil/uL (4.20-5.00); RDW 19.7 % (10.5-14.5); WBC 4.9 thou/uL (4.0-11.0)
[2020-09-12 14:19] LABS: CREATININE 0.8 mg/dL (0.6-1.0); POTASSIUM 3.8 mmol/L (3.5-5.1)
[2020-09-12 15:25] VITALS: BP 95/55
[2020-09-12 15:37] LABS: ANISOCYTOSIS 2+
--- NOTE | 2020-09-12 16:06 | NUR ---
ASSUMED CARES AT 0700. PT AWAKE, ALERT AND ORIENTED*4. C/O MILD LEFT SHOULDER PAIN, LIDOCAINE PATCH APPLIED. BP LOW, PHYSICIAN AWARE AND ORDERS RECEIVED. PT CONSTIPATED WITH DISTENDED ABDOMEN AND HYPOACTIVE BS, BOWEL PROGRAM CONTINUED AND PATIENT HAS HAD MULTIPLE STOOLS (LOOSE) THIS AFTERNOON. KUB COMPLETED (SEE RESULTS). GROIN AREA CLEANED AND DRY. PT PARTICIPATED IN THERAPIES. UP WITH 1 MIN ASSIST, GB AND WALKER. LUE REMAINS 20LB WEIGHT BEARING. FREQ. VISUAL CHECKS. CALL LIGHT WITHIN REACH. FALL PRECAUTIONS IN PLACE
[2020-09-12 20:00] VITALS: BP 102/60
--- NOTE | 2020-09-13 04:16 | NUR ---
DUE TO ANOTHER LOOSE STOOL LAST EVENING, PATIENT DECLINED HER LACTULOSE BUT WAS WILLING TO TAKE MIRALAX AND SENNA. UP WITH STANDBY ASSIST AND GAIT BELT TO TOILET FOR BM AND VOID. APPRECIATED LIDODERM PATCH TO LEFT SHOULDER.
[2020-09-13 07:30] VITALS: BP 123/61
--- NOTE | 2020-09-13 13:34 | NUR ---
ASSUMED CARE AT 0700. PT HAD AN UNEVENTFUL NIGHT. PAIN IS MANAGEABLE WITH TRAMADOL. LIDOCAINED APPLIED TO L SHOULDER SITE. L ARM DRESSING DONE WITH ABD, DARSHAN INTACT WITH NO SIGNS OF INFLAMMATION. PT COMPLAINED OF FUNGAL RASH UNDERNEATH BREASTS AND ABDOMINAL FOLDS. ACCUCHECKS WNL ON METFORMIN. BP IS IMPROVING WITH IV FLUIDS. DR YEPEZ NOTED. TO SALINE LOCK IV FOR NOW. PARTICIPATING IN THERAPIES. CONT TO MONITOR.
[2020-09-13 20:00] VITALS: BP 125/65
--- NOTE | 2020-09-14 03:06 | NUR ---
ASSUMED CARE APPROX 1900 EVENING 09/13. PT ALERT AND ORIENTED X4, PLEASANT AND COOPERATIVE. PT UP TO BATHROOM WITH WALKER WITH 1 ASSIST TOLERATING WELL. PT TOOK HS MEDS WITH WATER. PT SLEEPING OFF AND ON TONIGHT. BED ALARM ON AND CALL LIGHT IN REACH. WILL CONTINUE TO MONITOR.
[2020-09-14 07:30] VITALS: BP 126/70
[2020-09-14 11:45] LABS: ABSOLUTE NEUTROPHILS 1.6 thou/uL (1.4-8.2); BASOPHILS 0.8 % (0.0-2.0); EOSINOPHILS 4.4 % (0.0-3.0); HEMATOCRIT 26.6 % (37.0-47.0); HEMOGLOBIN 8.3 gm/dL (12.0-15.0); LYMPHOCYTES 43.6 % (24.0-44.0); MCH 26.2 pg (26.0-34.0); MCHC 31.2 g/dL (28.0-37.0); MCV 83.9 fL (80.0-100.0); MONOCYTES 7.4 % (1.0-8.0); PLATELET COUNT 266 thou/uL (150-400); POLYS 43.8 % (36.0-66.0); RBC 3.16 mil/uL (4.20-5.00); RDW 21.4 % (10.5-14.5); WBC 3.6 thou/uL (4.0-11.0)
[2020-09-14 12:07] LABS: ALBUMIN 2.8 g/dL (3.4-5.0); CALCIUM 9.1 mg/dL (8.5-10.1); CREATININE 0.7 mg/dL (0.6-1.0); POTASSIUM 3.8 mmol/L (3.5-5.1); TOTAL BILIRUBIN 0.5 mg/dL (0.2-1.0); TOTAL PROTEIN 6.2 g/dL (6.4-8.2)
--- NOTE | 2020-09-14 12:38 | NUR ---
ASSUMED CARE AT 0700. ALERT AND ORIENTATED. REPORTED DID NOT SLEEP WELL LAST NIGHT DUE TO PAIN. SHE MANAGED TO GET SOME SLEEP CLOSE TO LATER IN THE NIGHT AFTER HER TRAMADOL. APPETITE GOOD, TOLERATING PO MEDS. IVF INFUSING. BP STABLE AND NO SIGNS OF DIZZINESS OR LIGHTHEADEDNESS. L SHOULDER DRESSING INTACT AND LIDOCAINE PATCH APPLIED. FUNGAL RASH TREATED WITH NYSTATIN AND SHOWING SOME IMPROVEMENT. NO OTHER CONCERNS. CONT TO MONITOR.
[2020-09-14 20:00] VITALS: BP 129/75
--- NOTE | 2020-09-15 00:48 | NUR ---
PT ALERT AND ORIENTED X4, PLEASANT AND COOPERATIVE ON THIS SHIFT. PT UP TO BATHROOM WITH WALKER AND 1 ASSIST. PT WITH INCONTINENT EPISODE OF LIQUID STOOL TONIGHT AND ASSISTED WITH BED CHANGE. PT NOW BACK TO BED AND APPEARS TO BE SLEEPING SOUNDLY. BED ALARM ON AND CALL LIGHT IN REACH. WILL CONTINUE TO MONITOR.
[2020-09-15 07:30] VITALS: BP 153/79
--- NOTE | 2020-09-15 13:46 | NUR ---
ASSUMED CARE AT 0700. PT SLEPT BETTER LAST NIGHT WITH MELATONIN. REPORTED PAIN AFTER HER SHOWER AND MEDICATED WITH TYLENOL AND LIDOCAINE PATCH. DARSHAN TO L ARM INTACT AND CLOSELY APPROXIMATED, DRESSING CHANGED. APPETITE GOOD, HAD A BM TODAY. DIURESING ADEQUATELY. PROGRESSING AND PARTICIPATING WITH THERAPY. PAIN IS STABLE WITH TYLENOL AND PRN TRAMADOL. IVF DISCONTINUED. CONT TO MONITOR.
[2020-09-15 20:39] VITALS: BP 134/82
--- NOTE | 2020-09-16 01:17 | NUR ---
PT ALERT AND ORIENTED X 4. UP IN RECLINER ALL EVENING. ASSISTED TO BED AT HS WITH ASSIST X 1. LEFT ARM DRESSING C/D/I. PT C/O HEADACHE. TRAMADOL GIVEN AT HS AND PT SLEEPING UPON REASSESSMENT. BED ALARM ON FOR SAFETY. PT APPEARS TO BE SLEEPING ON HOURLY ROUNDS.
[2020-09-16 07:40] VITALS: BP 153/84
--- NOTE | 2020-09-16 08:19 | NUR ---
PATIENT IS ALERT AND ORIENTED THIS AM, AND REMEMBERED TO CALL FOR HER MORNING MEDICATIONS.
--- NOTE | 2020-09-16 10:22 | H ---
[facility] [place] [address] HISTORY AND PHYSICAL Name: ALVIN DE LA CRUZ Room #: 514-P ADM IN M.R.#: [id number] Admission: 09/09/20 Attend Phys: Antoni Fish MD Discharge: Date of : 59 Report #: [id number] THIS REPORT FOR: cc: Cora Barros Christine L. DO Smithson, David G. MD ~ DATE OF SERVICE: 09/09/2020 HISTORY OF PRESENT ILLNESS: The patient is a 65-year-old white female who originally was admitted to [facility] on 08/31/2020 after a fall at home, thought to be related to her neuropathy. She was found to have a left humerus fracture, seen by Orthopedics and underwent a left ORIF on 09/03/2020. On 09/04/2020, she developed slurred speech and acute mental status changes. Code stroke was called. CT of the head was negative. MRI of the head was negative. Neurology was consulted. UA and chest x-ray were noted to be clear. Labs were stable. She was felt to be ready and has been transferred for an acute in-hospital inpatient rehabilitation stay. Of note is that yesterday evening after coming up to the rehab alexis she was found down at the bedside by the evening nurse. She indicated she landed on her left side and did hit her head. No loss of consciousness. No injury was noted other than a grape-sized bump on her posterior skull. Hospitalist ordered a CT scan, which was negative of the head. Ortho service ordered 2-views of the humerus, which did not show any significant abnormality. The patient denies any specific headache, visual changes, focal weakness or any specific problems this morning. PAST MEDICAL HISTORY: Prior medical history includes prior left total knee arthroplasty. She has a history of a peripheral neuropathy. This is noted to be diabetic neuropathy, history of anxiety and depression, diabetes mellitus type 2, and exogenous obesity. MEDICATIONS: Please see the full medication listing. ALLERGIES: PROCHLORPERAZINE. 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 She has 4 steps in. Uses no assistive device, but does have a cane and a walker at home available. She was independent with ADLs and IADLs. She indicates that she has a daughter and son-in-law that live in [place] that they currently have COVID, but she thinks that her daughter could stay with her when she is out of isolation/quarantine. REVIEW OF SYSTEMS: No current complaints of chest pain, shortness of breath, abdominal discomfort. PHYSICAL EXAMINATION: GENERAL: A 65-year-old white female in no obvious distress. She is pleasant, alert, and appropriate. Follows commands without difficulty. [facility] [address] [place] [address] HISTORY AND PHYSICAL Name: ALVIN DE LA CRUZ Room #: 514-P [facility] IN M.R.#: [id number] Admission: 09/09/20 Attend Phys: Antoni Fish MD Discharge: Date of : 59 Report #: [id number] HEENT: Appeared to be benign. EOMs are full. Facies are symmetric. EXTREMITIES: She has functional range of motion of the right upper extremity without focal weakness. Left upper extremity is in the immobilizer. She can move that left hand. There is no significant edema. Lower extremities, no focal calf swelling. Strength appears to be at least grade 4-/5. DTRs are trace to 1. She does have some decreased distal sensation consistent with her peripheral neuropathy. ASSESSMENT: 1. Metabolic encephalopathy, this appears to be improving. 2. Left humerus fracture, status post open reduction and internal fixation on 09/03/2020. 3. Nontraumatic fall yesterday evening. 4. Urinary tract infection was diagnosed and she was started on the Levaquin prior to rehabilitation transfer. This may have contributed to the fall and that is what the patient thinks. Discussed with her the importance of asking for assistance when attempting to get up. The patient is amenable in this regard. 5. Premorbid peripheral neuropathy. 6. Type 2 diabetes mellitus. 7. Hypertension. 8. Irritable bowel syndrome. PLAN: The patient has been admitted for acute in-hospital inpatient rehabilitation. Please see her prior and current functional status. As far as risk of complication, she has the multiple medical comorbidities as noted. Initial plan of care involves the interdisciplinary acute inpatient rehabilitation program. Measurable functional goals would be for her to be modified independent with transfers, mobility and ADLs and improvement as far as cognition to hopefully return back to the home setting. Prognosis is reasonably good with estimated length of stay probably around 7-14 days. Potential barriers would include her multiple medical comorbidities and decreased functional status. She meets diagnostic criteria for an acute in-hospital inpatient rehabilitation stay. She meets the medical necessity criteria and we will have the [facility] [place] consultant physicians continue to follow. She does have the tolerance for therapies and has appropriate discharge goals back to the home setting. She will be involved in therapies today and we will be continuing to monitor her neuro status post fall. I do not see any evidence for any neuro changes and her CT of the head was negative. She appears amenable and indicated she would not [address] [address] HISTORY AND PHYSICAL Name: ALVIN DE LA CRUZ Room #: 514-P ADM IN M.R.#: [id number] Admission: 09/09/20 Attend Phys: Antoni Fish MD Discharge: Date of : 59 Report #: [id number] get up on her own again. She will continue in the interdisciplinary acute inpatient rehabilitation program. <ELECTRONICALLY SIGNED> By: Antoni Fish MD 09/16/20 1022 [id number] Antoni Fish MD /nt
[2020-09-16 15:23] VITALS: BP 158/92
--- NOTE | 2020-09-16 16:00 | NUR ---
PT C/O URINARY BURNING UEARLY IN SHIFT, AND THIS WAS NOTED TO DR. MURPHY ON ROUNDS, BUT PT ALREADY COVERED WITH ANTIBIOTICS. PT ALSO C/O HEADACHE WITH HTN, AND RN NOTED THIS AFTERNOON TO SHEA WOLF NP, PT STATED, "I THINK I NEED TO GO BACK UP ON MY CARVEDILOL DOSE." WILL GIVE PM DOSE OF CARVEDILOL AND RECHECK BP.
--- NOTE | 2020-09-16 16:15 | NUR ---
TEAM: ST: PT PROGRESSING TO MILD-MOD COGNITIVE IMPAIRMENT, NEEDS ASSISTANCE W/BILL AND PILLS. PT'S DTR, STEVAN IS A RN, LIVES IN [place] AND STATED SHE CAN ASSIST PT. STEVAN HAS RTRN'D TO WORK AND CAN NOT GET OFF TO LEAD ARCHITECT PT UNITL 09/26 OR 09/27 SO SHE WOULD LIKE TO EXTEND PT'S D/C DAY IF POSSIBLE. IF PT DOES D/C ON 09/24 PT'S MIRNA ANTONIO, WILL PROVIDE FREQUENT CHECKS AND ASSIST W/CARES BUT HE WONT BE THERE 25/04.
[2020-09-16 19:59] VITALS: BP 112/73
--- NOTE | 2020-09-17 01:37 | NUR ---
UP TO TOILET WITH MINIMAL ASSIST AND MINIMAL WEIGHT BEARING OF LEFT ARM, PLANNED PAIN MED FOR HS WITH HER ROUTINE MEDS, BUT AT BEDTIME HAD NO PAIN. ENCOURAGED TO LET STAFF KNOW IF PAIN RETURNS. HAS BEEN TALKING TO FAMILY MEMBERS TO TRY TO DECIDE WHERE SHE WILL STAY WHEN SHE IS DISCHARGED
[2020-09-17 08:00] VITALS: BP 136/81
--- NOTE | 2020-09-17 11:17 | NUR ---
Nutrition: Pt continues on rehab unit. Eating well, 75-100% of most meals on carb controlled diet. Orders meals so typically smaller portions. BG controlled. Vitamin D deficiency, on supplementation and also folic acid, B12. Some weight fluctuations, nothing significant. Pt not drinking the glucerna. Will D/C. Continue as low nutrition risk.
--- NOTE | 2020-09-17 15:42 | NUR ---
ASSUMED CARES AT 0700. PT AWAKE, ALERT AND ORIENTED*4. DENIES PAIN. C/O DIZINESS WITH ACTIVITY THAT RESOLVED AFTER LAYINMG DOWN. VITALS REMAIN STABLE. LEFT ARM INCISION REMAINS DRY AND DARSHAN REMAIN INTACT. LUE REMAINS 20LB WB. GROIN AREA CLEANED AND NYSTATIN POWDER APPLIED. PT UP WITH 1 MIN ASSIST, GB AND WALKER AND TOLERATED WELL. Q1H VISUAL CHECKS. CALL LIGHT WITHIN REACH. FALL PRECAUTIONS IN PLACE
[2020-09-17 20:07] VITALS: BP 117/69
--- NOTE | 2020-09-18 01:48 | NUR ---
CALLING AT 2000 FOR HS MEDS AND ASKING IF TRAMADOL COULD BE GIVEN WELL. CALLING FOR ASSIST UP TO TOILET AND TRYING TO AVOID WEIGHT BEARING ON ROLLER WALKER WITH LEFT ARM. VOID AND SMALL BMS AT 2200. DARSHAN CDI. DR OTERO'S OFFICE CALLED ASKING WHEN DARSHAN MAY BE REMOVED; PLAN TO CALL AGAIN TODAY WHEN OFFICE OPEN IF NOT ROUNDING THIS MORNING.
[2020-09-18 08:00] VITALS: BP 114/68
--- NOTE | 2020-09-18 13:49 | NUR ---
ASSUMED CARE AT 0700. PT IS ALERT AND ORIENTATED, SLEPT WELL LAST NIGHT. DENIES ANY PAIN. SLIGHTLY HYPOTENSIVE WITH NO SIGNS OF LIGHTHEADEDNESS OR DIZZINESS. PARTICIPATING IN THERAPY. CALLED DR OTERO'S OFFICE AND OK TO REMOVE DARSHAN AND COVER WITH STERISTRIPS. PROGRESSING WITH THERAPY. CONT TO MONITOR. NO OTHER CONCERNS OR ISSUES.
[2020-09-18 19:50] VITALS: BP 147/75
--- NOTE | 2020-09-19 03:28 | NUR ---
assumed care approx 1900 evening 09/18. pt alert and oriented x4, pleasant and cooperative. pt up to bathroom with walker with 1 assist to have bm. pt took hs meds with water tolerating well. pt appears to be sleeping soundly with hourly rounding checks. bed alarm on and call light in reach. will continue to monitor.
[2020-09-19 06:20] LABS: HEMATOCRIT 25.8 % (37.0-47.0); HEMOGLOBIN 8.2 gm/dL (12.0-15.0); MCHC 31.6 g/dL (28.0-37.0); MCV 82.2 fL (80.0-100.0); PLATELET COUNT 172 thou/uL (150-400); RBC 3.14 mil/uL (4.20-5.00); RDW 20.7 % (10.5-14.5); WBC 2.1 thou/uL (4.0-11.0)
[2020-09-19 06:46] LABS: CALCIUM 8.7 mg/dL (8.5-10.1); CREATININE 0.6 mg/dL (0.6-1.0); POTASSIUM 3.9 mmol/L (3.5-5.1)
[2020-09-19 07:25] VITALS: BP 128/67
[2020-09-19 10:30] LABS: ABSOLUTE NEUTROPHILS 0.5 thou/uL (1.4-8.2); METAMYELOCYTES 1 %
[2020-09-19 10:31] LABS: ANISOCYTOSIS 1+; POIKILOCYTOSIS SLIGHT
--- NOTE | 2020-09-19 12:00 | NUR ---
ASSUMED CARE AT 0700. PT SLEPT WELL LAST NIGHT. REPORTED PAIN THIS MORNING AFTER THERAPY TO HER L ARM INCISION SITE. MEDICATED WITH TRAMADOL AND LIDOCAINE PATCH APPLIED. AMBULATORY WITH MIN ASSIST IN THE ROOM TO THE BATHROOM. BP STABLE WITH NO COMPLAINS OF LIGHTHEADEDNESS AND DIZZY. PROGRESSING AND PARTICIPATING IN THERAPY. CONT TO MONITOR.
[2020-09-19 20:00] VITALS: BP 119/64
--- NOTE | 2020-09-20 02:55 | NUR ---
assumed care approx 1900 evening 09/19. pt alert and oriented x4, pleasant and cooperative. pt up to bathroom with walker before hs. pt took hs meds with water tolerating well. pt appears to be sleeping soundly with hourly rounding checks. bed alarm on and call light in reach. will continue to monitor.
[2020-09-20 08:00] VITALS: BP 134/61
--- NOTE | 2020-09-20 14:09 | HC ---
[facility] [place] [address] CONSULTATION Name: ALVIN DE LA CRUZ Room #: 514-P ADM IN M.R.#: [id number] Admission: 09/09/20 Attend Phys: Antoni Fish MD Discharge: Date of : 59 Report #: [id number] THIS REPORT FOR: cc: Cora Barros Christine L. DO Deutch,Nilo Steward. PhD ~ DATE OF SERVICE: 09/13/2020 NEUROBEHAVIORAL STATUS EXAM ATTENDING PHYSICIAN: Antoni Fish MD LINE MAINTENANCE TECHNICIAN: Nilo Rosa, PhD CLINICAL PRESENTATION: The patient is a 65-year-old female admitted to [facility] following a fall at her home. One fall was from her bed and she indicates having hit her head on a night stand. She has a history of frequent falling that is attributed to neuropathy. The patient sustained a left humerus fracture and underwent a left open reduction and internal fixation on 09/03/2020. Additionally, she developed slurred speech and acute mental status changes and a stroke was suspected. There was no loss of consciousness from her fall. She had a bump on the posterior element of the skull. She had a negative CT scan of the head. PAST MEDICAL HISTORY: Includes prior left total knee arthroplasty, history of peripheral neuropathy, diabetes, diabetic neuropathy with history of anxiety, depression, diabetes mellitus type 2 and exogenous obesity. Her assessment on admission to the rehabilitation unit is metabolic encephalopathy, left humerus fracture, nontraumatic fall, urinary tract infection, premorbid peripheral neuropathy, type 2 diabetes mellitus, hypertension and irritable bowel syndrome. Neuropsychological testing was recommended to provide assistance in the assessment of cognitive and behavioral statuas and provide psychological services as needed. Prior to this most recent admission, the patient was living alone in her home. She has one child that lives out of state and one brother. Brother is reported as . The patient is a retired nurse. She was confused and disoriented during the interview. She was also tangential and uncertain of the reason for her hospitalization. Historical information is of uncertain accuracy. TECHNIQUES UTILIZED: Clinical interview, review of medical records, staff consultation and behavioral observations, mini mental status exam 2 standard version and clock drawing. EXAMINATION FINDINGS: The patient was alert and cooperative with the [address] [address] CONSULTATION Name: ALVIN DE LA CRUZ Room #: 514-P [facility] IN .R.#: [id number] Admission: 09/09/20 Attend Phys: Antoni Fish MD Discharge: Date of : 59 Report #: [id number] interview. There is no evidence of aphasia. Her thoughts are logical and goal oriented without evidence of thought disorder. However, she was unable to describe the reason for her hospitalization. She was tangential with intermittent confusion during the assessment. She reports her symptoms to include depression, althought sleep, appetite and memory are reported as withion normal limits. She denies use of alcohol, marijuana, auditory or visual hallucinations. As indicated she has a history of falls with possible concussive events. Performance on the MMSE 2 brief version was 14/16. The patient did require one intensive repetition during initial registration. Orientation to time was 4/[address] 5/5. She was 2/3 for immediate recall of 3 items after a brief time delay and distraction. Performance on the MMSE 2 standard version was 23/30, which is a T score of 26 and percentile rank of 1. The patient was 1/5 for serial sevens and she was unable to copy a simple geometric design. Naming, repetition, comprehension, reading and being able to write a sentence was within normal limits. Clock drawings within normal limits. The patient is presenting with deficits in sustained concentration and visual spatial construction. Depression is also described. DIAGNOSTIC IMPRESSION: Neurocognitive disorder, extent to be determined, likely in the mild to moderate range. unspecified depressive disorder. RECOMMENDATIONS: The patient will likely require assistance in the management of medication, finances and nutrition upon her discharge. She reported living independently in her home prior to this medical event and being independent in I IADLSs. However, assistance in the management of medication, finances and nutrition is likely be necessary for her to maintain safety. Consider outpatient neuropsychological testing following discharge to [facility] neurocognitive functioning. Thank you very much for allowing me to provide the consultation on this patient. <ELECTRONICALLY SIGNED> By: Nilo Rosa, PhD 09/20/20 1409 [id number] Nilo Rosa, PhD /nt
--- NOTE | 2020-09-20 16:12 | NUR ---
ASSUMED CARE OF PT AT 0700. PT IS A&OX4 AND VITAL SIGNS ARE STABLE. PT REPORTED PAIN IN AFTERNOON IN LEFT SHOULDER, MANAGED WITH PO MEDICATIONS. PT SLEEPING THIS AFTERNOON. ACCU CHECK IN AM. SURGICAL SITE WELL APPROXIMATED WITH STERI STRIPS IN PLACE. PT CALLED FOR MEDICATIONS APPROPRIATELY. FALL PRECAUTIONS IN PLACE AND NURSING WILL CONTINUE TO MONITOR.
[2020-09-20 20:00] VITALS: BP 119/77
--- NOTE | 2020-09-21 01:27 | NUR ---
PT ASSESSMENT COMPLETED AND T 99.4. RECHECKED T. ELEVATED TO 99.7. CONTACTED FAUSTINA DOUGLAS. PER ORDERS COMPLETED A COVID TEST AND SENT TO THE LAB. RESULTS PENDING. BP CHECKED AGAIN AROUND 2330. TEMP 100.8. NO OTHER COVID SYMPTOMS NOTICED AT THIS TIME. INFORMED FAUSTINA DOUGLAS AND TYLENOL GIVEN. MEDS GIVEN ORDERED AND WELL TOLERATED. UP TO THE BATHROOM WITH ASST/GAIT/WALKER. VOIDING MODERATE AMOUNT OF YELLOW URINE. LARGE FORMED BROWN BM AT HS. FALL PRECAUTIONS IN PLACE. SLEEPING WELL. WILL CONTINUE TO MONITOR.
--- NOTE | 2020-09-21 02:40 | NUR ---
PT TEMP DOWN TO 98.6 AT 0130 THIS MORNING. RECEIVED CALL FROM LAB AND PATIENT POSITIVE FOR COVID. GAVE REPORT TO DIETER KAY ON 3W. WILL GATHER PT BELONGINGS AND BRING PT IN MASK USING PRECAUTIONS TO 3W ROOM 362. INFORMED OUTBOARD MOTORBOAT RIGGER STELLA AND EMEKA WHITMAN OF PT + COVID RESULT.
[2020-09-21] MEDS ORDERED: CARVEDILOL12.5 MG PO (04:45)
--- NOTE | 2020-09-21 08:06 | NUR ---
CONTACTED PTS DAUGHTER THIS MORNING REGARDING POSITIVE COVID TEST AND MOVING PT TO [facility]. PT DID NOT WANT TO WAKE HER DAUGHTER DURING THE NIGHT. CONTACTED STEVAN DOROTHY - DAUGHTER. SHE IS AWARE AND IS PLANNING TO CONTACT [facility] THIS MORNING.
--- NOTE | 2020-09-24 10:41 | PLAN ---
[facility] [place] [address] REHAB UNIT PLAN OF CARE Name: ALVIN DE LA CRUZ Room #: 514-P [facility] IN M.R.#: [id number] Admission: 09/09/20 Attend Phys: Antoni Fish MD Discharge: 09/21/20 Date of : 59 Report #: [id number] THIS REPORT FOR: cc: Cora Barros Christine L. DO Smithson, David G. MD ~ DATE OF SERVICE: 09/12/2020 The patient was seen back today in followup. She was in no distress. Last recorded temperature 98, pulse 82, respirations 18, and blood pressure is 88/52. She is pleasant. She has the prior left humerus fracture. We are working with her in therapies. The hospitalist service is involved and a CT of the abdomen has been ordered and is currently pending. There is a concern regarding some abdominal distention and she has been given MiraLax and mag citrate. From a therapy perspective, her transfers are min assist with gait 40 feet standby assistance with a front-wheeled walker. In occupational therapy, lower body dressing is moderate assistance, upper body dressing is min assist. In speech therapy, she has moderate cognitive deficits with moderate to severe memory deficits. ASSESSMENT: 1. Metabolic encephalopathy. 2. Left humerus fracture, status post open reduction and internal fixation 09/03/2020. 3. Abdominal distention, which has been noted. CT of the abdomen is pending. 4. Urinary tract infection. 5. Premorbid peripheral neuropathy. 6. Diabetes mellitus type 2. 7. Hypertension. 8. Irritable bowel syndrome. PLAN: The overall plan of care is based on the preadmission screen, post-admission physician evaluation and information garnered from therapy assessments. 1. Estimated length of stay is probably within the next 10 days to 2 weeks. 2. Medical prognosis is reasonably good. 3. Anticipated interventions include the interdisciplinary acute inpatient rehabilitation program. 4. Anticipated functional outcomes would be for the patient to become modified independent with transfers, mobility and ADLs, so she can hopefully return back to the prior living situation. 5. Discharge destination would be back to the home setting where she lives at home alone. She does have a daughter that should be able to stay with per her history. [address] [address] REHAB UNIT PLAN OF CARE Name: ALVIN DE LA CRUZ Room #: 514-P [facility] IN .R.#: [id number] Admission: 09/09/20 Attend Phys: Antoni Fish MD Discharge: 09/21/20 Date of : 59 Report #: [id number]. Expected therapy by discipline includes PT, OT and speech 1 hour per day each five days a week throughout the duration of the acute inpatient rehabilitation stay. The patient's prognosis for significant practical improvement within a reasonable period of time appears good. Given the patient's complex medical condition and risk of further medical complications, rehabilitation services could not be safely provided at a lower level of care such as a halfway facility. <ELECTRONICALLY SIGNED> By: Antoni Fish MD 09/24/20 [id number] Antoni Fish MD /nt
== END 2020-09-21 03:10 | disposition short-term general hospital (02) | DRG 91 ==
PROVIDERS: Internal Medicine; Nurse Practitioner; Nurse Practitioner Family; ADMIT Physical Medicine & Rehabilitation; ATTEND Physical Medicine & Rehabilitation
DX: G92 Toxic encephalopathy (principal); U07.1 COVID-19; S42.202A Unspecified fracture of upper end of left humerus, initial encounter for closed fracture; N39.0 Urinary tract infection, site not specified; E11.42 Type 2 diabetes mellitus with diabetic polyneuropathy; I10 Essential (primary) hypertension; K58.9 Irritable bowel syndrome, unspecified; E78.5 Hyperlipidemia, unspecified; E78.00 Pure hypercholesterolemia, unspecified; F41.9 Anxiety disorder, unspecified; F32.9 Major depressive disorder, single episode, unspecified; R14.0 Abdominal distension (gaseous); Z96.652 Presence of left artificial knee joint; R41.9 Unspecified symptoms and signs involving cognitive functions and awareness; G47.30 Sleep apnea, unspecified; I95.9 Hypotension, unspecified; E55.9 Vitamin D deficiency, unspecified; D64.9 Anemia, unspecified; Z96.653 Presence of artificial knee joint, bilateral; W18.30XD Fall on same level, unspecified, subsequent encounter; Z90.49 Acquired absence of other specified parts of digestive tract; Z90.710 Acquired absence of both cervix and uterus
CPT/HCPCS: 10112

== ENCOUNTER 2020-09-21 02:32 | Inpatient (IN) | payer MEDICAID ==
[~2020-09-21] VITALS: Ht 165.1 cm; Wt 91.6 kg
[~2020-09-21 02:32] MED LIST changes: +ACETAMINOPHEN325 M1 PO; +COLACE 100 MG100 MG PO; +ENOXAPARIN40 MG/0.1 SUBQ; +GLUCAGEN1 MG/1 ML IM; +HUMALOG100 UNIT/1 SUBQ; +IRON325 PO; +LEVOFLOXACIN250 MG PO; +LIDOPATCH1 EACH TRANSDERM; +PROTONIX 20 MG20 M1 PO; +TRAMADOL 50 MG50 MG PO
[2020-09-21] MEDS ORDERED: CARVEDILOL12.5 MG PO (04:45)
--- NOTE | 2020-09-21 05:55 | NUR ---
PT TRANSFERRED FROM --COVID+. AMBULATING TO BATHROOM WITH ASSIST X1 AND IS TOLERATING FAIR. DENIES PAIN. RESTING COMFORTABLY. NO NEEDS VOICED. CALL LIGHT WITHIN REACH. FREQUENT OBSERVATION.
[2020-09-21 07:57] VITALS: BP 102/63
[2020-09-21 15:56] VITALS: BP 124/80
[2020-09-21 20:31] VITALS: BP 126/65
--- NOTE | 2020-09-22 05:40 | NUR ---
ASSUMED CARE OF PATIENT AT 1900. VSS, AFEBRILE. PAIN WELL MANAGED WITH PRN MEDS. DENIES SOA OR N/V. CALLS OUT APPROPRIATELY. PROGRESSING TOWARDS POC GOALS.
[2020-09-22 05:52] VITALS: BP 125/85
[2020-09-22 06:17] LABS: HEMATOCRIT 29.8 % (37.0-47.0); HEMOGLOBIN 9.4 gm/dL (12.0-15.0); MCHC 31.6 g/dL (28.0-37.0); MCV 82.4 fL (80.0-100.0); RBC 3.61 mil/uL (4.20-5.00); RDW 20.2 % (10.5-14.5); WBC 2.4 thou/uL (4.0-11.0)
[2020-09-22 06:33] LABS: CREATININE 0.6 mg/dL (0.6-1.0); POTASSIUM 3.7 mmol/L (3.5-5.1)
[2020-09-22 08:29] VITALS: BP 116/68
[2020-09-22 16:11] VITALS: BP 98/70
--- NOTE | 2020-09-22 16:24 | NUR ---
INITIAL ASSESSMENT: Received consult. SW reviewed chart and spoke with nursing and attending physician. Pt was admitted to 3 from 5N due to positive COVID-19 test. Pt placed in Enhanced Isolation. Pt had anticipated discharge date of 09/24 while on 5N. Pt is afebrile and not requiring O2. Pt is on IV steroids. AUSTYN placed call to pt's room. No answer. Per chart, pt's dtr will be coming to [facility] later this week. Plan is for pt to discharge home when medically stable. AUSTYN is following to assist as needed with discharge planning.
--- NOTE | 2020-09-22 16:39 | NUR ---
ASSUMED CARE OF PT AT 0700. PT AOX4 IN NO ACUTE DISTRESS. DENIES SOA. OCCASIONAL PRODUCTIVE COUGH. UP W/ ROLLING WALKER. ONE TIME PO LASIX GIVEN. CALLS APPROPRIATELY. VITALS STABLE. WAITING ON TRANSFER TO SICU/COVID OVERFLOW.
[2020-09-22 18:00] VITALS: BP 112/56
--- NOTE | 2020-09-23 02:02 | NUR ---
UP TO TOILET WITH ROLLING WALKER AND STANDBY ASSIST, CALLS FOR HER SAFETY. TRAMADOL FOR C/O HEADACHE AT HS. BLOOD SUGAR 127 AT THAT TIME.
[2020-09-23 04:33] VITALS: BP 130/86
[2020-09-23 08:43] VITALS: BP 132/97
--- NOTE | 2020-09-23 15:37 | NUR ---
ROLLING WALKER USED TO AMBULATE WITH ASSIST TO RESTROOM, STEADY ON HER FEET. C/O HEADACHE AGAIN AT THIS TIME, TRAMDOL GIVEN FOR SUCH THIS AFTERNOON WELL. SLIGHTY SOB OBSERVED THIS AFTERNOON AND WHEEZY WHEN I WAS IN THE ROOM WITH HER. VERY PLEASANT DEMEANOR OVERALL AND CALM.
--- NOTE | 2020-09-23 17:37 | NUR ---
Attempted to sp with patient but unable to reach by phone. sp with dtr. She recently had COVID and has recovered. She reports she is driving from [place] to be here at [facility] for discharge. She reports unforseen circumstances she cannot be here until . She reports she needs to be here to help her mother into home. She reports steps into home and she has multiple dogs who will immediately jump on patient. She requests dc be . She reports no need for home health care she plans to bring her mother back to [place] to live with her. Patient is COVID positive. Dtr reports difficulty to have someone assist her at dc due to Covid. Patient has a walker at home. cont to follow for dc planning.
[2020-09-23 19:43] VITALS: BP 113/66
[2020-09-24 03:33] VITALS: BP 109/74
--- NOTE | 2020-09-24 03:39 | NUR ---
PT RESTING IN NO ACUTE DISTRESS.A/OX4.VSS.C/O FATIGUE AND HEADACHE THAT WAS CONTROLLED BY TRAMADOL.ASSESSMENT DOCUMENTED.NO FURTHER CONCERNS NOTED AT THIS TIME.
[2020-09-24 07:45] VITALS: BP 110/67
[2020-09-24 08:54] VITALS: BP 124/68
--- NOTE | 2020-09-24 12:04 | NUR ---
Case discussed with the care team. Dtr driving to tomorrow and will order picker the pt and take her home. Dtr is an RN and has had covid and recovered. Pt has needed dme in the home. No cm interventions indicated. Nursing to send the pt with her DC summary as well as instructions as she may be moving to ID with her dtr. Will f/u with pt's dtr tomorrow am regarding her estimated arrival time tomorrow.
[2020-09-24 15:14] VITALS: BP 124/68
[2020-09-24 17:27] VITALS: BP 118/71
[2020-09-24 20:04] VITALS: BP 97/63
--- NOTE | 2020-09-25 03:58 | NUR ---
PT ALERT AND ORIENTED. ASSESSMENTS DOCUMENTED. VITALS STABLE. NO FEVER. REPORTS LUE PAIN. ALLEVIATED BY PRN TRAMADOL. NO OTHER C/O. UP AD DHARA. WILL CONTINUE TO MONITOR AND FOLLOW POC. DC ANTICipated today
[2020-09-25 05:02] VITALS: BP 83/50
[2020-09-25 08:30] VITALS: BP 110/59
[2020-09-25 09:16] VITALS: BP 110/59
--- NOTE | 2020-09-25 09:16 | NUR ---
PT ALERT AND ORIENTED X4. PT STATED SHE HAS PAIN TO HEAD 9 ON 1-10 SCALE. INCISION LINE IS WELL APPROXIMATED WITH STERI-STRIPS ON LEFT ARM. PT HAS DRY COUGH AT TIMES. PT DISCHARGING TODAY WITH DTR STEVAN TO HER HOME. PLAN IS TO LIVE WITH HER DTR IN [place], PT STATED SHE WAS LEAVING [place] WITH HER DTR AND 2 DOGS. PT USES ROLLING WALKER TO AMBULATE. PT TOOK MEDS WHOLE WITHOUT ANY SWALLOWING ISSUES.
--- NOTE | 2020-09-25 09:20 | NUR ---
ADM TRAMADOL 50MG PO FOR HEADACHE OF 6 ON 1-10 SCALE. PT STATED IT FEELS ACHY IN FRONT AND AT NECK.
--- NOTE | 2020-09-25 12:50 | NUR ---
PT DAUGHTER ON HER WAY FROM [place], SHE CALLED AND SAID SHE WAS IN [place], [place].
--- NOTE | 2020-09-25 14:30 | NUR ---
PT DTR HERE TO [facility] PT. PT LEFT VIA W/C. PT TOOK ALL BELONGINGS WITH HER. PT HAS ROLLING WALKER WITH SEAT. PT VERBALY UNDERSTOOD D/C ORDERS.
== END 2020-09-25 14:30 | disposition home or self-care (01) | DRG 178 ==
LOC: TBA 02:32 → 3W 03:57 → SICU 09-22 17:50
PROVIDERS: ADMIT Hospitalist; ATTEND Hospitalist
DX: U07.1 COVID-19 (principal); S42.302A Unspecified fracture of shaft of humerus, left arm, initial encounter for closed fracture; N39.0 Urinary tract infection, site not specified; I10 Essential (primary) hypertension; E78.00 Pure hypercholesterolemia, unspecified; F41.9 Anxiety disorder, unspecified; F32.9 Major depressive disorder, single episode, unspecified; E11.42 Type 2 diabetes mellitus with diabetic polyneuropathy; E55.9 Vitamin D deficiency, unspecified; D64.9 Anemia, unspecified; B96.89 Other specified bacterial agents as the cause of diseases classified elsewhere; K58.9 Irritable bowel syndrome, unspecified; Z90.710 Acquired absence of both cervix and uterus; Z90.49 Acquired absence of other specified parts of digestive tract; W18.39XA Other fall on same level, initial encounter; Y93.89 Activity, other specified; Y92.89 Other specified places as the place of occurrence of the external cause; Y99.8 Other external cause status
CPT/HCPCS: 10080; 15000